=== PATIENT | male | born 1950 | race Caucasian/White ===

== ENCOUNTER 2018-11-27 15:17 | Emergency (ER) | payer MEDICARE, BC, SELFPAY ==
[2018-11-27 15:21] VITALS: BP 175/96; PULSE 68; RESP 16; TEMP 36.5; O2SAT 99
--- NOTE | 2018-11-27 15:46 | ED.GENADUL_ITS ---
Discharge Plan Disposition Patient Disposition: HOME Condition: Improving Discharge Details Chief Complaint: RespSymp Clinical Impression: Viral syndrome, Laryngitis, Pharyngitis Primary Care Provider: Yesika Fall ED Provider: Aranza Patel Home Meds and New Rx's Prescriptions: Continued minocycline 100 MG capsule 100 mg PO .Q THU & THURSDAY PRNRF: 0 aspirin [Aspir-81] 81 MG tablet,delayed release (DR/EC) 81 mg PO DAILY RF: 0 Prilosec OTC 20 MG tablet,delayed release (DR/EC) 20 mg PO .Q PRNRF: 0 Atorvastatin Calcium 20 MG tablet 20 mg PO DAILY Qty: 90 RF: 3 OneTouch Ultra Test 1 EACH strip 1 ea Miscellaneous DAILY Qty: 100 RF: 4 lancets [OneTouch UltraSoft Lancets] 1 EACH misc 1 ea Miscellaneous DAILY Qty: 100 RF: 3 metformin 1,000 MG tablet 1,000 mg PO BID Qty: 180 RF: 3 losartan 100 MG tablet 100 mg PO DAILY Qty: 90 RF: 3 glipizide 5 MG tablet 2.5 mg PO DAILY Qty: 45 RF: 4 Metoprolol Succinate 25 MG TAB.ER.24H 25 mg PO DAILY Qty: 90 RF: 3 cyanocobalamin (vitamin B-12) [Vitamin B-12] 500 MCG tablet 500 mcg PO DAILY RF: 0 gabapentin 300 MG capsule 300 mg PO TID Qty: 270 RF: 1 Discharge Instructions Instructions: Pharyngitis (ED), Laryngitis (ED), Viral Syndrome (ED) Additional Instructions: Drink plenty of fluids and get plenty of rest. Alternate Tylenol and Motrin as needed and directed for pain. Rest your voice as much as possible. You can try drinking hot water with lemon, Chloraseptic throat spray, Sucrets, or cough drops. Follow-up with your primary care doctor in 1 week for reevaluation. Return immediately to the emergency department any worsening or new concerning symptoms. Discharge Data Discharge Date/Time-TO BE ENTERED AT DEPARTURE: 11/27/18 17:51 Discharge Physician: Aranza Patel Medical Decision Making 68-year-old male with history of diabetes, hyper lipidemia, hypertension, hypothyroidism who presents with sore throat, painful swallowing, bilateral ear pain, occasional dry cough, headache and body aches for the past 5 days. States the sore throat is bothering him the most. He has been able to eat and drink normally but with pain. Denies any known fever. Blood pressure hypertensive otherwise vitals within normal limits. Afebrile. Voice is hoarse. TMs dull bilaterally. Patient has uvular edema but no exudates or tonsillar abscess and uvula is midline. Lungs clear to auscultation. No lymphadenopathy. Differential diagnosis includes strep pharyngitis, viral pharyngitis, laryngitis, URI, influenza. Will obtain a rapid strep and influenza test. Will give a dose of Decadron p.o. discussed with patient that as he has normal heart rate, respirations, oxygen saturation, without fever, no complaints of chest pain or shortness of breath with normal lung sounds, I do not see an indication for chest x-ray and he is agreeable. 1700 --rapid strep and influenza negative. Patient states he feels better. Patient instructed on the importance of rest, fluids, voice rest, alternating Tylenol and Motrin. Instructed to call his primary care doctor on Thursday to schedule follow-up appointment and to return here at any time if significantly worse. Medical Records Medical records reviewed: Yes I reviewed the patient's medical records. Lab Data Lab results reviewed: Yes I reviewed the patient's lab results. Rapid strep negative. Rapid influenza negative. HPI General Mode of arrival: ambulatory . Date/Time Provider Initiated Documentation: 11/27/18 15:26 . Limitations to Documentation: no limitations . Information obtained by: patient . HPI Narrative: Pt is a 68yo M who presents to the ED w/ a c/o sore throat, occasional dry cough, bilateral ear pain and decreased hearing, headache and body aches for the past 5 days. Patient states the sore throat was bothering him the most. He states he has been able to eat and drink normally but it hurts with swallowing. He denies any known fever. He also admits to diarrhea one time today but denies any vomiting. Patient states he has been taking Advil occasionally for pain and Tessalon Perles for his cough. Patient states his was sick recently with a GI bleed and was in the hospital and he was traveling between [facility] and [facility]. He denies any known flu contacts. He states he did receive a flu shot this year. Related Data Home Medications Medication Instructions Recorded Confirmed aspirin [Aspir-81] 81 mg PO DAILY tab-cap 02/24/13 11/27/18 minocycline 100 mg PO .Q MON & THURSDAY PRN 02/24/13 11/27/18 Prilosec OTC 20 mg PO .Q PRN 02/16/14 11/27/18 OneTouch Ultra Test #100 strip 12/29/17 11/27/18 glipizide 2.5 mg PO DAILY #45 tab-cap 12/29/17 11/27/18 lancets [OneTouch UltraSoft #100 strip 12/29/17 11/27/18 Lancets] losartan 100 mg PO DAILY #90 tab-cap 12/29/17 11/27/18 metformin 1,000 mg PO BID #180 tab 12/29/17 11/27/18 cyanocobalamin (vitamin B-12) 500 mcg PO DAILY tab 04/13/18 11/27/18 [Vitamin B-12] gabapentin 300 mg PO TID #270 tab-cap 06/29/18 11/27/18 Previous Rx's Medication Instructions Recorded OneTouch Ultra Test #100 strip 12/29/17 glipizide 2.5 mg PO DAILY #45 tab-cap 12/29/17 lancets [OneTouch UltraSoft #100 strip 12/29/17 Lancets] losartan 100 mg PO DAILY #90 tab-cap 12/29/17 metformin 1,000 mg PO BID #180 tab 12/29/17 gabapentin 300 mg PO TID #270 tab-cap 06/29/18 Allergies Allergy/AdvReac Type Severity Reaction Status Date / Time Penicillins Allergy tongue Verified 11/27/18 15:24 swelled hydrochlorothiazide AdvReac Mild hypomagnese Verified 11/27/18 15:24 eufemia codeine AdvReac upset Verified 11/27/18 15:24 stomach General Stated Complaint: RespSymp SD: 3 Review of Systems Review of Systems All systems reviewed & are unremarkable except as noted in HPI and below Constitutional Reports as per HPI, Denies chills and Denies fever(s) Eyes Denies blurry vision ENT Denies dizziness, Reports sore throat and Denies throat swelling Cardiovascular Denies chest pain and Denies dyspnea Respiratory Reports cough, Denies excessive phlegm production and Denies dyspnea Gastrointestinal Denies abdominal pain, Denies diarrhea and Denies vomiting Genitourinary Denies hematuria and Denies dysuria Musculoskeletal Denies back pain and Denies numbness Integumentary/Breasts Denies lesions and Denies rash Neurologic Denies dizziness and Denies numbness Allergic/Immunologic Denies throat swelling [facility] Medical History Acne rosacea B12 deficiency Cervical radiculopathy at C6 Diabetes Erectile dysfunction GERD (gastroesophageal reflux disease) Hyperlipidemia Hypertension Hypomagnesemia Hypothyroidism Osteoarthritis Sensorineural hearing loss (SNHL) of both ears Surgical History Colonoscopy - IV Sedation Colonoscopy - MAC (06/29/18) Family History Brother Alcohol abuse COPD (chronic obstructive pulmonary disease) Brother Alcohol abuse Neoplasm COPD (chronic obstructive pulmonary disease) Other Diabetes Heart disease Hyperlipidemia Social History household members: spouse housing: house lives independently: Yes number of children: 3 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 duration: 15-30 minutes/day Smoking/Tobacco Use Status: Never alcohol intake: current alcohol intake frequency: 0-2 drinks per day Alcohol type: other substance use type: does not use seatbelt use: always drive intox or ride w/ intox truck 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 heavy: No water heater temp set < 120 deg: Yes working smoke detector in home: Yes fire extinguisher in home: Yes carbon monox detector in home: Yes Exam Const General: cooperative and healthy appearing Orientation: alert and awake HENKS Head: normal to inspection Ears: hearing grossly normal bilaterally, external ears normal and TM abnormal dull bilaterally; not with effusion and not erythematous General nose exam: external nose normal Face and sinus: normal facial exam and sinuses nontender Mouth: oral mucosae normal Teeth and gingiva: dentition normal Throat: uvula midline and posterior oropharynx abnormal (Mild to moderate uvular edema. No tonsillar edema, exudates.) Eyes General: appearance normal, both eyes and all related structures Eyelids: eyelids normal EOM: EOM intact bilaterally Neck Neck: normal visual inspection Lymphatic: no lymphadenopathy noted Chest Chest: normal inspection of the chest Resp Effort & Inspection: normal respiratory effort and able to speak in complete sentences Auscultation: clear to auscultation bilaterally Cardio Rate: regular rate Rhythm: regular rhythm GI Inspection: normal to inspection Palpation: soft, not firm, no guarding, no hepatosplenomegaly, no masses and nontender Auscultation: normal bowel sounds Skin General skin exam: no rashes or lesions noted Neuro General: alert and awake Cognition: normal cognition Speech: speech normal Gait: normal gait Motor: muscle tone normal throughout Sensory Exam: no sensory deficits noted Extrem General: normal to inspection, full ROM and no edema Psych Appearance: grossly normal Mental Status: mental status grossly normal Speech and Movement: speech and movement normal Affect: normal affect Thought Process: normal Course Vital Signs Temperature 97.7 F 11/27/18 15:21 Pulse 68 11/27/18 15:21 Respiratory Rate 16 11/27/18 15:21 Blood Pressure 175/96 H 11/27/18 15:21 Pulse Oximetry 99 11/27/18 15:21 Temperature 97.7 F 11/27/18 15:21 Temperature Source Oral 11/27/18 15:21 Pulse 68 11/27/18 15:21 Respiratory Rate 16 11/27/18 15:21 Respiratory Effort 11/27/18 15:37 Respiratory Depth Normal 11/27/18 15:37 Blood Pressure 175/96 H 11/27/18 15:21 Blood Pressure Position Sitting 11/27/18 15:21 Pulse Oximetry 99 11/27/18 15:21 Oxygen Delivery Method Room Air 11/27/18 15:21 Oxygen Flow Rate 0 11/27/18 15:21 Pain Level 0 11/27/18 15:21
[2018-11-27] MEDS: Dexamethasone 10 MG/ML VIAL PO (16:34)
--- NOTE | 2018-11-27 17:14 | NUR.NOTE ---
Remains alert, skin warm/dry/pink. No WOB. Drinking G-jere. Reports he feels a wee-bit better.Nursing Note:
[2018-11-27 17:45] VITALS: BP 150/72; PULSE 70; RESP 16; TEMP 36.6; O2SAT 99
[2018-11-27 18:27] VITALS: BP 150/72; PULSE 70; RESP 16; TEMP 36.6; O2SAT 99
== END 2018-11-27 17:51 | disposition home or self-care (01) ==
PROVIDERS: Emergency Provider Physician Assistant; PCP Internal Medicine
DX: J02.8 Acute pharyngitis due to other specified organisms (principal); J04.0 Acute laryngitis; H92.03 Otalgia, bilateral; R05 Cough; B34.9 Viral infection, unspecified; E11.9 Type 2 diabetes mellitus without complications; Z79.84 Long term (current) use of oral hypoglycemic drugs; I10 Essential (primary) hypertension
CPT/HCPCS: 87449; 87880; 99283; 87081; J1100

== ENCOUNTER 2019-01-17 06:50 | Outpatient (CLI) | payer MEDICARE, BC, SELFPAY ==
[2019-01-17 09:01] LABS: Anion Gap 8.3 mmol/L (3-11); BUN 16 mg/dL (7-18); CO2 28.7 mmol/L (21.0-32.0); Calcium 9.9 mg/dL (8.5-10.1); Chloride 103 mmol/L (98-107); Cholesterol 192 mg/dL (50-200); Glucose 158 mg/dL (70-100); HDL Cholesterol 63 mg/dL (40-60); LDL CHOLESTEROL 102 mg/dL (<100); Potassium 5.6 mmol/L (3.5-5.1); Sodium 140 mmol/L (136-145); Triglyceride 123 mg/dL (30-150); Vitamin B12 355 pg/mL (193-986)
[2019-01-18 09:30] LABS: PSA, Screening 0.3 ng/ml (0-4.5)
== END 2019-01-17 07:10 ==
PROVIDERS: PCP Internal Medicine; Visit Provider Internal Medicine
DX: E11.9 Type 2 diabetes mellitus without complications (principal); I10 Essential (primary) hypertension; D51.8 Other vitamin B12 deficiency anemias; Z12.5 Encounter for screening for malignant neoplasm of prostate
CPT/HCPCS: 36415; 80048; 80061; 83721; 84153; 82607

== ENCOUNTER 2019-02-11 09:56 | Outpatient (CLI) | payer MEDICARE, BC, SELFPAY ==
[2019-02-11 11:08] LABS: Potassium 4.8 mmol/L (3.5-5.1)
== END 2019-02-11 10:16 ==
PROVIDERS: PCP Internal Medicine; Visit Provider Internal Medicine
DX: E87.5 Hyperkalemia (principal)
CPT/HCPCS: 36415; 84132

== ENCOUNTER 2019-05-10 07:12 | Outpatient (CLI) | payer MEDICARE, BC, SELFPAY ==
[2019-05-10 08:08] LABS: Anion Gap 13.7 mmol/L (3-11); BUN 14 mg/dL (7-18); CO2 23.3 mmol/L (21.0-32.0); CREATININE 1.13 mg/dL (0.70-1.30); Calculated LDL 76 mg/dL; Chloride 105 mmol/L (98-107); Cholesterol 149 mg/dL (50-200); Glucose 170 mg/dL (70-100); HDL Cholesterol 57 mg/dL (40-60); Potassium 4.8 mmol/L (3.5-5.1); Sodium 142 mmol/L (136-145); Triglyceride 81 mg/dL (30-150)
== END 2019-05-10 07:32 ==
PROVIDERS: PCP Internal Medicine; Visit Provider Internal Medicine
DX: E78.5 Hyperlipidemia, unspecified (principal); I10 Essential (primary) hypertension
CPT/HCPCS: 36415; 80048; 80061; 83721

== ENCOUNTER 2019-06-27 10:36 | Emergency (ER) | payer MEDICARE, BC, SELFPAY ==
[2019-06-27 10:42] VITALS: BP 117/65; PULSE 84; RESP 14; TEMP 36.8; O2SAT 100
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
--- NOTE | 2019-06-27 11:06 | DI.RAD_ITS ---
SYMPTOM/DIAGNOSIS: SWELLING, PAIN LEFT KNEE: 06/27 Three views were obtained. Minimal degenerative changes noted. No evidence of fracture.
[2019-06-27] MEDS: Ibuprofen 600 MG TAB PO (11:34)
== END 2019-06-27 12:21 | disposition home or self-care (01) ==
PROVIDERS: Emergency Provider Student in an Organized Health Care Education/Training Program; PCP Internal Medicine
DX: M25.462 Effusion, left knee (principal); E11.9 Type 2 diabetes mellitus without complications; I10 Essential (primary) hypertension; Z79.84 Long term (current) use of oral hypoglycemic drugs
CPT/HCPCS: 29505; 73562; 99283; 99282; L1820

== ENCOUNTER → 2019-08-15 08:52 | Outpatient (BNVA) | payer MEDICARE, BC, SELFPAY | PROVIDERS: PCP Internal Medicine; Referring Provider Internal Medicine; Visit Provider Student in an Organized Health Care Education/Training Program | DX: M25.462 Effusion, left knee (principal) | CPT/HCPCS: 20610; 99203; 99214; J1040 ==

== ENCOUNTER → 2019-10-17 08:10 | Outpatient (BNVA) | payer MEDICARE, BC, SELFPAY | PROVIDERS: PCP Internal Medicine; Referring Provider Internal Medicine; Visit Provider Student in an Organized Health Care Education/Training Program | DX: M25.462 Effusion, left knee (principal); Z98.890 Other specified postprocedural states | CPT/HCPCS: 99213 ==

== ENCOUNTER 2019-11-23 11:57 | Outpatient (REF) | payer MEDICARE, BC, SELFPAY ==
[2019-11-23 13:36] LABS: COMMENT (LAB VIEW ONLY) 71.09 mg/dL; Microalb ug/mg Crea 3.2 ug/mg Cr
== END 2019-11-23 12:17 ==
LOC: LBN 11:57
PROVIDERS: PCP Internal Medicine; Visit Provider Internal Medicine
DX: E11.9 Type 2 diabetes mellitus without complications (principal)
CPT/HCPCS: 82043; 82570

== ENCOUNTER 2020-04-23 12:12 | Emergency (ER) | payer MEDICARE, BC, SELFPAY ==
[2020-04-23] VITALS (31 sets, daily range): BP systolic 131–159; BP diastolic 59–104; PULSE 64–85; RESP 14–23; TEMP 36.7; O2SAT 94–100
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
[2020-04-23] MEDS: methylPREDNISolone SUCC 125 MG VIAL IVP (12:31)
[2020-04-23] MEDS: diphenhydrAMINE 50 MG/ML VIAL IVP (12:32)
[2020-04-23] MEDS: Normal Saline 500 ML IV (12:44)
[2020-04-23] MEDS: FAMOTIDINE 20 MG/50 ML BAG 200 MG IVPB (12:44)
== END 2020-04-23 15:51 | disposition home or self-care (01) ==
PROVIDERS: Emergency Provider Student in an Organized Health Care Education/Training Program; PCP Internal Medicine
DX: T63.441A Toxic effect of venom of bees, accidental (unintentional), initial encounter (principal); R20.2 Paresthesia of skin; I10 Essential (primary) hypertension; E11.9 Type 2 diabetes mellitus without complications; Z79.84 Long term (current) use of oral hypoglycemic drugs
CPT/HCPCS: 36415; 36416; 82962; 96361; 96374; 96375; 99284; J1200; J2930

== ENCOUNTER 2020-05-16 03:06 | Outpatient (CLI) | payer MEDICARE, BC, SELFPAY ==
[2020-05-16 11:39] LABS: TSH (W/Ref FT4) 4.28 uIU/mL (0.36-3.74)
[2020-05-16 12:06] LABS: FREE T4 0.94 ng/dL (0.76-1.46)
== END 2020-05-16 03:26 ==
PROVIDERS: PCP Internal Medicine; Visit Provider Internal Medicine
DX: R53.83 Other fatigue (principal)
CPT/HCPCS: 36415; 84439; 84443

== ENCOUNTER 2020-07-18 18:53 | Observation (INO) | payer MEDICARE, BC, SELFPAY ==
[2020-07-18 18:58] VITALS: BP 137/61; PULSE 79; RESP 18; TEMP 36.2; O2SAT 100
--- NOTE | 2020-07-18 19:00 | RT.EKG_ITS ---
APPROVED REPORT Exam: Resting ECG Patient Location: E HR:77 bpm ECG Measurements Heart Rate 77 AXIS FL 263 P 19 QRSd 81 QRS 43 QT 422 T 20 QTc 478 Conclusion Sinus rhythm...normal P axis, V-rate 60- 99 Prolonged FL interval...FL >[address]
[2020-07-18 19:01] VITALS: RESP 19
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
[2020-07-18] MEDS: Normal Saline 1,000 ML 1000 ML IV ×2 (19:40→21:09)
[2020-07-18] MEDS: Ondansetron 4 MG/2 ML VIAL IVP (19:40)
[2020-07-18] MEDS: diazePAM 10 MG/2 ML SYR 2 MG IVP (19:40)
[2020-07-18 19:46] LABS: Abs Immature Grans 0.06 10^3/uL (0.0-0.06); Absolute Basophil Count 0.05 10^3/uL (0.0-0.2); Absolute Eosinophil Count 0.16 10^3/uL (0.0-0.7); Absolute Lymphocyte Count 1.98 10^3/uL (1.2-3.4); Absolute Monocyte Count 1.35 10^3/uL (0.1-0.8); Basophils % 0.4; Eosinophils % 1.3; HCT 32.4 % (40.0-50.0); HGB 9.9 g/dL (13.5-17.5); Immature Grans % 0.5; Lymphocytes % 16.6; MCH 25.3 pg (27.0-33.0); MCHC 30.6 % (32.0-36.0); MCV 82.9 fL (80-95); MPV 10.2 fL (8.0-11.0); Monocytes % 11.3; Neutrophils % 69.9; Nucleated RBC 0 %; Platelet Count 322 10^3/uL (130-400); RBC 3.91 10^6/uL (4.36-5.78); RDW 16.4 % (11.8-14.1); RDW-SD 49.2 fL; WBC 11.94 10^3/uL (4.4-10.8)
--- NOTE | 2020-07-18 19:51 | NUR.NOTE ---
Addendum entered by Johana Valdez 07/18/20 19:51: Sats to 98% Original Note: Sats to 85% after valium. MD Burch aware, pt placed on 2L O2.
[2020-07-18 19:57] LABS: Absolute Neutrophil Count 8.35 10^3/uL (1.2-6.7)
[2020-07-18 20:07] LABS: ALT 22 U/L (16-63); AST 19 U/L (15-37); Albumin 3.7 g/dL (3.4-5.0); Alkaline Phosphatase 64 U/L (46-116); Anion Gap 21.1 mmol/L (3-11); BUN 14 mg/dL (7-18); Bilirubin, Total 0.5 mg/dL (0.2-1.0); CO2 14.9 mmol/L (21.0-32.0); CREATININE 1.08 mg/dL (0.70-1.30); Chloride 103 mmol/L (98-107); Glucose 93 mg/dL (74-106); Magnesium 1.7 mg/dL (1.8-2.4); Potassium 3.2 mmol/L (3.5-5.1); Sodium 139 mmol/L (136-145); Total Protein 6.5 g/dL (6.4-8.2)
--- NOTE | 2020-07-18 20:32 | DI.CT_ITS ---
EXAM: CT BRAIN NECK CTA CLINICAL HISTORY: severe vertigo, wait for labs. TECHNIQUE: Imaging Protocol: Axial CT angiography was performed with multi-slice acquisition and mu lti-planar and/or 3D reconstructions. CONTRAST MATERIAL: Intravenous: Omnipaque 350 Contrast volume:85 cc COMPARISON: MR MRI - CERVICAL SPINE WO CONT from 06/02/2016 FINDINGS: CT Head W/O: Ventricles and Extra axial spaces: Normal in size and morphology for the patient's age. Hemorrhage: None. Cerebral parenchyma: Small old left cerebellar infarct, otherwise normal. Midline shift: None. Brainstem/Cerebellum: Normal. Calvarium: Normal. Visualized Paranasal sinuses/Mastoids: Clear Soft Tissues: Unremarkable. CTA Brain W: Internal Carotid Arteries: Petrous: Normal. Cavernous: Normal. Cerebral: Normal. Middle Cerebral Arteries: Right: No aneurysm, occlusion or significant stenosis. Left: No aneurysm, occlusion or significant stenosis. Anterior Cerebral Arteries: Right: No aneurysm, occlusion or significant stenosis. Left: No aneurysm, occlusion or significant stenosis. Posterior cerebral Arteries: Right: No aneurysm, occlusion or significant stenosis. Left: No aneurysm, occlusion or significant stenosis. Vertebral Arteries: Right: No aneurysm, occlusion or significant stenosis. Left: No aneurysm, occlusion or significant stenosis. Basilar Artery: No aneurysm, occlusion or significant stenosis. CTA Neck W: Common Carotid: Right: No aneurysm, occlusion or significant stenosis. Left: No aneurysm, occlusion or significant stenosis. External Carotid: Right: No aneurysm, occlusion or significant stenosis. Left: No aneurysm, occlusion or significant stenosis. Internal Carotid: Right: No aneurysm, occlusion or significant stenosis. Left: No aneurysm, occlusion or significant stenosis. Vertebral Artery: Right: No aneurysm, occlusion or significant stenosis. Left: No aneurysm, occlusion or significant stenosis. Lung Apices: Normal. Bones: Normal. Soft Tissues: Normal. IMPRESSION: 1. Normal CTA examination of the [place]. 2. Small old left cerebellar infarct, otherwise unremarkable noncontrast CT Head. 3. Normal CTA examination of the neck. RADIATION DOSE DELIVERED: Total DLP DATA REPOSITORY: All CT scans at this facility are submitted to the National Radiology Data Registry (NRDR) Dose Index Registry (DIR) with the [employer] (ACR). RADIATION OPTIMIZATION: All CT scans at this facility use at least one of these dose optimization te chniques: automated exposure control; mA and/or kV adjustment per patient size (includes targeted exa ms where dose is matched to clinical indication); or iterative reconstruction.
[2020-07-18] MEDS: Normal Saline Flush 10 ML SYR IVP (20:43)
[2020-07-18] MEDS: Omnipaque 350 MG/ML 100 ML BTL IJ (20:43)
[2020-07-18] MEDS: Normal Saline - Diluent 50 ML VIAL IV (20:44)
[2020-07-18] MEDS: Meclizine 25 MG TAB PO (21:08)
[2020-07-18 21:09] VITALS: BP 128/61; PULSE 85; RESP 16; O2SAT 100
--- NOTE | 2020-07-18 21:09 | DI.VRAD_ITS ---
PROCEDURE INFORMATION: Exam: CT Angiography Head Without And With Contrast Exam date and time: 07/18/2020 7:34 PM Age: 70 years old Clinical indication: Vertigo TECHNIQUE: Imaging protocol: Computed tomographic angiography of the head without and with intravenous contrast. 3D rendering (Not supervised by radiologist): MIP and/or 3D reconstructed images were created by the technologist. Radiation optimization: All CT scans at this facility use at least one of these dose optimization techniques: automated exposure control; mA and/or kV adjustment per patient size (includes targeted exams where dose is matched to clinical indication); or iterative reconstruction. Contrast material: [id number]; Contrast volume: 85 ml; Contrast route: INTRAVENOUS (IV); COMPARISON: No relevant prior studies available. FINDINGS: ANTERIOR CIRCULATION: Right internal carotid artery: Intracranial segment is patent with no significant stenosis or occlusion. No aneurysm. Right middle cerebral artery: No occlusion or significant stenosis. No aneurysm. Right anterior cerebral artery: No occlusion or significant stenosis. No aneurysm. Left internal carotid artery: Intracranial segment is patent with no significant stenosis. No aneurysm. Left middle cerebral artery: No occlusion or significant stenosis. No aneurysm. Left anterior cerebral artery: No occlusion or significant stenosis. No aneurysm. POSTERIOR CIRCULATION: Right vertebral artery: No occlusion or significant stenosis. No aneurysm. Left vertebral artery: No occlusion or significant stenosis. No aneurysm. Basilar artery: No occlusion or significant stenosis. No aneurysm. Right posterior cerebral artery: No occlusion or significant stenosis. No aneurysm. Left posterior cerebral artery: No occlusion or significant stenosis. No aneurysm. HEAD: Brain: A small remote infarct is seen within the left cerebellum, on axial image 13, series 4. The brain parenchyma is otherwise normal appearance. No evidence for acute cortical infarct. No intracranial hemorrhage. No midline shift. Cerebral ventricles: No hydrocephalus. Bones/joints: Unremarkable. No acute fracture. Paranasal sinuses: Minimal mucosal thickening within the bilateral ethmoid sinuses. The remaining paranasal sinuses are well aerated. No air-fluid levels. Mastoid air cells: Visualized mastoids are normal. No mastoid effusion. Soft tissues: The overlying soft tissues are normal appearance. IMPRESSION: 1. No large vessel occlusion within the intracranial vessels. 2. Remote left cerebellar infarct. No evidence for acute infarct. No evidence for acute intracranial process. PROCEDURE INFORMATION: Exam: CT Angiography Neck Without And With Contrast Exam date and time: 07/18/2020 7:34 PM Age: 70 years old Clinical indication: Vertigo TECHNIQUE: Imaging protocol: Computed tomographic angiography of the neck without and with intravenous contrast. 3D rendering (Not supervised by radiologist): MIP and/or 3D reconstructed images were created by the technologist. Radiation optimization: All CT scans at this facility use at least one of these dose optimization techniques: automated exposure control; mA and/or kV adjustment per patient size (includes targeted exams where dose is matched to clinical indication); or iterative reconstruction. Contrast material: [id number]; Contrast volume: 85 ml; Contrast route: INTRAVENOUS (IV); COMPARISON: No relevant prior studies available. FINDINGS: Right common carotid artery: No stenosis. No dissection or occlusion. Right internal carotid artery: No stenosis of the extracranial segment. No dissection or occlusion. Right external carotid artery: No occlusion or stenosis of the origin. Right vertebral artery: No stenosis. No dissection or occlusion. Left common carotid artery: No stenosis. No dissection or occlusion. Left internal carotid artery: No stenosis of the extracranial segment. No dissection or occlusion. Left external carotid artery: No occlusion or stenosis of the origin. Left vertebral artery: No stenosis. No dissection or occlusion. Bones/joints: No acute fracture. Soft tissues: Normal. No significant soft tissue swelling. IMPRESSION: No stenosis or occlusion within the extracranial vessels. REFERENCES: NASCET CRITERIA. The degree of internal carotid artery stenosis is based on NASCET criteria. Normal is no stenosis. Mild is less than 50% stenosis. Moderate is 50-69% stenosis. Severe is 70% to 99% stenosis. Total occlusion is no detectable patent lumen. Dictated and Authenticated by: Erica Benjamin MD. Ordering:ZEESHAN Conteh MD
[2020-07-18 21:11] LABS: BE (Venous) -7 mmol/L (-2-3); HCO3 (Venous) 19 mmol/L (23-28); O2 Sat (Venous) 84 %; TCO2 (Venous) 18 mmol/L (24-29); pCO2 (Venous) 33 mmHg (41-51); pH (Venous) 7.36 (7.31-7.41); pO2 (Venous) 50 mmHg
[2020-07-18 21:11] LABS: Salicylate < 2.8 mg/dL (2.8-20.0)
[2020-07-18] MEDS: POTASSIUM CHLORIDE 20 MEQ/100 ML BAG 50 MEQ IVPB (21:13)
[2020-07-18] MEDS: MAGNESIUM SULFATE 1 GM/100 ML BAG IVPB (21:13)
--- NOTE | 2020-07-18 21:14 | NUR.NOTE ---
Pt reports dizziness improved to 6/10. Continued nausea. Med with meclizine a/o. reports dizziness worsened when sitting up. joe po's.
[2020-07-18 21:15] LABS: Lactate 2.8 mmol/L (0.6-1.4)
[2020-07-18 21:17] LABS: Acetaminophen < 2 ug/mL (10-30)
[2020-07-18 21:31] LABS: ETHANOL BLOOD < 3.0 mg/dL (<3)
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
[2020-07-18 22:40] LABS: Lactate 1.7 mmol/L (0.6-1.4)
[2020-07-18 22:41] VITALS: BP 132/61; PULSE 82; RESP 16; O2SAT 96
[2020-07-18 22:50] LABS: Anion Gap 12.7 mmol/L (3-11); CO2 19.3 mmol/L (21.0-32.0); Chloride 104 mmol/L (98-107); Potassium 5.1 mmol/L (3.5-5.1); Sodium 136 mmol/L (136-145)
--- NOTE | 2020-07-18 22:54 | NUR.NOTE ---
Pt maintaining sat 98% on room air. Report to med/surg.
[2020-07-18 23:28] VITALS: BP 122/67; PULSE 73; RESP 16; TEMP 36.6; O2SAT 100
[2020-07-18 23:51] VITALS: BP 122/64; PULSE 79
--- NOTE | 2020-07-19 | DI.MRI_ITS ---
EXAM: MR BRAIN WO/W CLINICAL HISTORY: vertigo. TECHNIQUE: Multiplanar multisequence MRI of the brain was performed. CONTRAST MATERIAL: IV Contrast: 15 millimeters Dotarem COMPARISON: CT CT BRAIN NECK CTA from 07/18/2020 FINDINGS: VENTRICLES AND EXTRA AXIAL SPACES: Normal in size and morphology for the patient's age. HEMORRHAGE: None. CEREBRAL PARENCHYMA: No focus of restricted diffusion to suggest acute infarct. No space-occupying le jeanne identified. There are a few scattered tiny high signal foci in the white matter consistent with minimal small vessel disease. MIDLINE SHIFT: None. BRAINSTEM/CEREBELLUM: Normal. ENHANCEMENT: No suspicious enhancement identified. VISUALIZED PARANASAL SINUSES/MASTOIDS: Clear. OTHER FINDINGS: Orbits and pituitary are unremarkable. Vascular flow voids appear intact. IMPRESSION: Unremarkable MRI of the brain. DATA REPOSITORY:
[2020-07-19] MEDS: Normal Saline 1,000 ML 125 ML IV ×2 (01:19→08:27)
[2020-07-19] MEDS: Normal Saline Flush 10 ML SYR IVP ×2 (01:20→12:42)
[2020-07-19] MEDS: Gabapentin 300 MG CAP PO ×4 (01:20→20:47)
[2020-07-19 07:19] LABS: Anion Gap 12.4 mmol/L (3-11); BUN 13 mg/dL (7-18); CO2 19.6 mmol/L (21.0-32.0); CREATININE 0.92 mg/dL (0.70-1.30); Calcium 8.1 mg/dL (8.5-10.1); Chloride 107 mmol/L (98-107); Glucose 66 mg/dL (74-106); Potassium 4.3 mmol/L (3.5-5.1); Sodium 139 mmol/L (136-145)
[2020-07-19 08:20] VITALS: BP 125/72; BP 148/82; PULSE 72; PULSE 86; RESP 18; TEMP 36.9; O2SAT 97
[2020-07-19] MEDS: Aspirin 325 MG TAB PO (08:23)
[2020-07-19] MEDS: Atorvastatin 40 MG TAB PO (08:25)
[2020-07-19] MEDS: Losartan 50 MG TAB 100 MG PO (08:25)
[2020-07-19] MEDS: Metoprolol CR 25 MG TABCR PO (08:25)
--- NOTE | 2020-07-19 09:30 | INITIAL_ITS ---
- If Service Date Differs Date of service: 07/19/20 Time of Service: 09:30 Care Management Initial Assess REASON FOR HOSPITALIZATION:: Vertigo PAST MEDICAL HISTORY/PAST SURGICAL HISTORY:: Medical History . Acne rosacea. B12 deficiency. Cervical radiculopathy at C6. Diabetes. Erectile dysfunction. GERD (gastroesophageal reflux disease). Hyperlipidemia. Hypertension. Hypomagnesemia. Hypothyroidism. subacute. No meds. Osteoarthritis. Sensorineural hearing loss (SNHL) of both ears. Surgical History . Colonoscopy - IV Sedation (~2007). 2007-nl. Colonoscopy - MAC (06/29/18) PREVIOUS FUNCTIONAL STATUS/SOCIAL/FAMILY SUPPORTS:: Elton lives in [facility] with his , Vesta. They have three children. They recently traveled to [facility] with family. He is independent at baseline. CURRENT FUNCTIONAL STATUS:: Elton is currently under precautions for Covid 19, as he recently traveled from an area requiring quarantine. CM called and spoke to his , Vesta to provide an update. CM will continue to follow. ADVANCE DIRECTIVES:: on file, Vesta listed as agent. Has patient been provided with info about the portal/API?: Yes Did the patient sign up for the portal?: No CODE STATUS:: Full Code INSURANCE COVERAGE / FINANCIAL ISSUES:: MCR/ BCBS CURRENT HOME/COMMUNITY SERVICES/EQUIPMENT:: No current equipment or services in the community. PRIMARY CARE PHYSICIAN:: Yesika Fall POTENTIAL DISCHARGE NEEDS:: Evaluations for further needs, follow up appointments PATIENT/FAMILY EDUCATION NEEDS:: Review discharge instructions regarding activity levels and medications, discussion of self care needs including Ask me three. ANTICIPATED BARRIERS TO DISCHARGE:: None identified at this time. TRANSPORTATION:: Via private vehicle by family. PLAN:: Elton will have an MRI today. Anticipate Elton will return home when medically cleared. His will drive him home via private vehicle. He will follow up with his PCP and discharge plan of care. CM will continue to follow and support discharge planning considerations.
[2020-07-19 11:12] VITALS: BP 134/76; PULSE 68; RESP 18; TEMP 36.9; O2SAT 97
[2020-07-19 12:41] VITALS: PULSE 70
[2020-07-19] MEDS: Gadoterate meglumine 20 ML VIAL 15 ML IVP (12:42)
[2020-07-19 13:10] LABS: COVID-19 RT-PCR UVMMC Result Negative (Negative)
--- NOTE | 2020-07-19 15:32 | NT_ITS ---
Date of service: 07/19/20 Time of Service: 15:52 PT Notes Visit Reasons: Vertigo Referral for safety assessment was received this afternoon at 15:[address] Del Rio was made regarding PUI status and pending COVID-[address] Del Rio verified that patient's brain MRI returned negative for any acute intracranial abnormality and clarified no new CVA for patient. He also indicated that the [place]-hallpike maneuver was performed at the ED initially with negative results. He advised PT that he will withdraw order for skilled services as he wanted to see how another dose of Valium will impact patient's mobility status with plan to have nursing staff attempt to walk patient in his room. Will do PT evaluation should another referral becomes warranted. Thank you for the opportunity to participate in the care of this patient. Pamela Khalil PT, DPT, CLT [facility] [place], [place]
--- NOTE | 2020-07-19 15:34 | W.PM.PROGNOT ---
Date of Service Date of service: 07/19/20 Time of Service: 15:34 Assessment and Plan Assessment and plan (1) Vertigo: Status: Acute Assessment and plan: Appears to be peripheral; labrynthitis vs positional. MRI head w/o acute findings/infarct Improving Meclizine prn Valium 2mg po tonight. PT eval. (2) Hypomagnesemia: Status: Acute Assessment and plan: Oral replacement Monitor (3) Essential hypertension: Status: Acute Assessment and plan: Cont Losartan and Metoprolol Monitor Subjective Subjective Patient reports: no new complaints and feels better Interval history since last seen: Still has mild vertigo with head movements Mild nausea but much improved. No KING. Exam Const General: cooperative and no acute distress Nutritional Appearance: average body habitus Eyes Conjunctivae: conjunctivae normal Sclera: sclerae normal Pupils: PERRL EOM: nystagmus (2-3 fine beats with left gaze) Resp Effort & Inspection: normal respiratory effort Auscultation: clear to auscultation bilaterally Cardio Rate: regular rate Rhythm: regular rhythm Neuro General: patient alert, patient oriented x3 and moves all extremities Cranial Nerves: nystagmus (2-3 fine beats with left gaze) Cognition: normal cognition Speech: speech normal Extrem General: no clubbing, cyanosis or edema Objective Objective Clinical Data: Abnormal lab results 07/18/20 07/18/20 07/18/20 Range/Units 19:05 19:05 21:05 WBC 11.94 H (4.4-10.8) 10^3/uL RBC 3.91 L (4.36-5.78) 10^6/uL Hgb 9.9 L (13.5-17.5) g/dL Hct 32.4 L (40.0-50.0) % MCH 25.3 L (27.0-33.0) pg MCHC 30.6 L (32.0-36.0) % RDW 16.4 H (11.8-14.1) % Absolute Neutrophils 8.35 H (1.2-6.7) 10^3/uL Absolute Monocytes 1.35 H (0.1-0.8) 10^3/uL VBG pCO2 33 L (41-51) mmHg VBG HCO3 19 L (23-28) mmol/L VBG Total CO2 18 L (24-29) mmol/L VBG Base Excess -7 L (-2-3) mmol/L VBG Lactate (0.6-1.4) mmol/L Potassium 3.2 L (3.5-5.1) mmol/L Carbon Dioxide 14.9 L (21.0-32.0) mmol/L Anion Gap 21.1 H (3-11) mmol/L Glucose (74-106) mg/dL Calcium (8.5-10.1) mg/dL Magnesium 1.7 L (1.8-2.4) mg/dL 07/18/20 07/18/20 07/18/20 Range/Units 21:05 22:35 22:35 WBC (4.4-10.8) 10^3/uL RBC (4.36-5.78) 10^6/uL Hgb (13.5-17.5) g/dL Hct (40.0-50.0) % MCH (27.0-33.0) pg MCHC (32.0-36.0) % RDW (11.8-14.1) % Absolute Neutrophils (1.2-6.7) 10^3/uL Absolute Monocytes (0.1-0.8) 10^3/uL VBG pCO2 (41-51) mmHg VBG HCO3 (23-28) mmol/L VBG Total CO2 (24-29) mmol/L VBG Base Excess (-2-3) mmol/L VBG Lactate 2.8 H* 1.7 H (0.6-1.4) mmol/L Potassium (3.5-5.1) mmol/L Carbon Dioxide 19.3 L (21.0-32.0) mmol/L Anion Gap 12.7 H (3-11) mmol/L Glucose (74-106) mg/dL Calcium (8.5-10.1) mg/dL Magnesium (1.8-2.4) mg/dL 07/19/20 Range/Units 05:35 WBC (4.4-10.8) 10^3/uL RBC (4.36-5.78) 10^6/uL Hgb (13.5-17.5) g/dL Hct (40.0-50.0) % MCH (27.0-33.0) pg MCHC (32.0-36.0) % RDW (11.8-14.1) % Absolute Neutrophils (1.2-6.7) 10^3/uL Absolute Monocytes (0.1-0.8) 10^3/uL VBG pCO2 (41-51) mmHg VBG HCO3 (23-28) mmol/L VBG Total CO2 (24-29) mmol/L VBG Base Excess (-2-3) mmol/L VBG Lactate (0.6-1.4) mmol/L Potassium (3.5-5.1) mmol/L Carbon Dioxide 19.6 L (21.0-32.0) mmol/L Anion Gap 12.4 H (3-11) mmol/L Glucose 66 L (74-106) mg/dL Calcium 8.1 L (8.5-10.1) mg/dL Magnesium (1.8-2.4) mg/dL Vital Signs Temperature 36.9 C 07/19/20 11:12 Temperature Source Tympanic 07/19/20 11:12 Pulse 70 07/19/20 12:41 Pulse Rhythm Regular 07/19/20 08:20 Respiratory Rate 18 07/19/20 11:12 Respiratory Effort 07/19/20 08:20 Respiratory Depth Normal 07/19/20 08:20 Respiratory Pattern Normal 07/19/20 08:20 Blood Pressure 134/76 07/19/20 11:12 Blood Pressure Position Supine 07/18/20 18:58 Pulse Oximetry 97 07/19/20 11:12 Oxygen Delivery Method Room Air 07/19/20 11:12 Oxygen Flow Rate 0 07/19/20 11:12 Pain Level 0 07/19/20 08:20 Intake & Output 07/18/20 07/19/20 07/19/20 23:59 11:59 23:59 Intake Total 1099 / 1099 891.667 / 891.667 Output Total 1050 / 1050 Balance 1099 / 1099 -158.333 / -158.333 Weight 76.3 kg Intake: IV 1100 / 1100 891.667 / 891.667 Output: Urine 1050 / 1050 Other: Urine Color Yellow Urine Appearance Clear Clear Urine Odor None Voiding Methods Urinal Laboratory Results WBC 11.94 10^3/uL (4.4-10.8) H 07/18/20 19:05 RBC 3.91 10^6/uL (4.36-5.78) L 07/18/20 19:05 Hgb 9.9 g/dL (13.5-17.5) L 07/18/20 19:05 Hct 32.4 % (40.0-50.0) L 07/18/20 19:05 MCV 82.9 fL (80-95) 07/18/20 19:05 MCH 25.3 pg (27.0-33.0) L 07/18/20 19:05 MCHC 30.6 % (32.0-36.0) L 07/18/20 19:05 RDW 16.4 % (11.8-14.1) H 07/18/20 19:05 Plt Count 322 10^3/uL (130-400) 07/18/20 19:05 MPV 10.2 fL (8.0-11.0) 07/18/20 19:05 Immature Gran % 0.5 07/18/20 19:05 Neutrophils % 69.9 07/18/20 19:05 Lymphocytes % 16.6 07/18/20 19:05 Monocytes % 11.3 07/18/20 19:05 Eosinophils % 1.3 07/18/20 19:05 Basophils % 0.4 07/18/20 19:05 Nucleated RBC % 0 % 07/18/20 19:05 Absolute Neutrophils 8.35 10^3/uL (1.2-6.7) H 07/18/20 19:05 Absolute Lymphocytes 1.98 10^3/uL (1.2-3.4) 07/18/20 19:05 Absolute Monocytes 1.35 10^3/uL (0.1-0.8) H 07/18/20 19:05 Absolute Eosinophils 0.16 10^3/uL (0.0-0.7) 07/18/20 19:05 Absolute Basophils 0.05 10^3/uL (0.0-0.2) 07/18/20 19:05 VBG pH 7.36 (7.31-7.41) 07/18/20 21:05 VBG pCO2 33 mmHg (41-51) L 07/18/20 21:05 VBG pO2 50 mmHg 07/18/20 21:05 VBG HCO3 19 mmol/L (23-28) L 07/18/20 21:05 VBG Total CO2 18 mmol/L (24-29) L 07/18/20 21:05 VBG O2 Saturation 84 % 07/18/20 21:05 VBG Base Excess -7 mmol/L (-2-3) L 07/18/20 21:05 VBG Lactate 1.7 mmol/L (0.6-1.4) H 07/18/20 22:35 Sodium 139 mmol/L (136-145) 07/19/20 05:35 Potassium 4.3 mmol/L (3.5-5.1) 07/19/20 05:35 Chloride 107 mmol/L (98-107) 07/19/20 05:35 Carbon Dioxide 19.6 mmol/L (21.0-32.0) L 07/19/20 05:35 Anion Gap 12.4 mmol/L (3-11) H 07/19/20 05:35 BUN 13 mg/dL (7-18) 07/19/20 05:35 Creatinine 0.92 mg/dL (0.70-1.30) 07/19/20 05:35 Estimated GFR/1.73 m2 >= 60.00 (mL/min/1.73m2) 07/19/20 05:35 Glucose 66 mg/dL (74-106) L 07/19/20 05:35 Calcium 8.1 mg/dL (8.5-10.1) L 07/19/20 05:35 Magnesium 1.7 mg/dL (1.8-2.4) L 07/18/20 19:05 Total Bilirubin 0.5 mg/dL (0.2-1.0) 07/18/20 19:05 AST 19 U/L (15-37) 07/18/20 19:05 ALT 22 U/L (16-63) 07/18/20 19:05 Alkaline Phosphatase 64 U/L (46-116) 07/18/20 19:05 Total Protein 6.5 g/dL (6.4-8.2) 07/18/20 19:05 Albumin 3.7 g/dL (3.4-5.0) 07/18/20 19:05 Salicylates < 2.8 mg/dL (2.8-20.0) 07/18/20 19:05 Acetaminophen < 2 ug/mL (10-30) 07/18/20 19:05 Ethyl Alcohol < 3.0 mg/dL (<3) 07/18/20 21:05 COVID-19 PCR Negative (Negative) 07/18/20 22:20 Nasopharyn COVID-19 PCR Not Applicable 07/18/20 22:20 Ref Test Perform Site [facility] 07/18/20 22:20
[2020-07-19 15:35] VITALS: BP 118/72; PULSE 68; RESP 18; TEMP 36.7; O2SAT 97
--- NOTE | 2020-07-19 16:06 | PHA.REVIEW ---
Pharmacy Admission Review - Admission Clinical Review (Last Reviewed 07/18/20 @ 22:06 by Raphael Vilchis MD) Vertigo (Acute) Hypomagnesemia (Acute 05/26/13) Essential hypertension (Acute 06/23/13) Penicillins Allergy (Verified 05/09/20 08:49) tongue swelled hydrochlorothiazide Adverse Reaction (Mild, Verified 05/09/20 08:49) hypomagnesemia losartan Adverse Reaction (Mild, Verified 05/09/20 08:49) Other (See Comment) codeine Adverse Reaction (Verified 05/09/20 08:49) upset stomach Bee stings Allergy (Unknown, Uncoded 05/09/20 08:49) Height 5 ft 10 in Weight 76.3 kg - Renal Dosing Renal Dosing: BUN 13 mg/dL (7-18) 07/19/20 05:35 Creatinine 0.92 mg/dL (0.70-1.30) 07/19/20 05:35 Medications needing adjustments: Reviewed - Anticoagulation Anticoagulation: Hgb 9.9 g/dL (13.5-17.5) L 07/18/20 19:05 Hct 32.4 % (40.0-50.0) L 07/18/20 19:05 Plt Count 322 10^3/uL (130-400) 07/18/20 19:05 Creatinine 0.92 mg/dL (0.70-1.30) 07/19/20 05:35 DVT Prohphylaxis: N/A Therapeutic Anticoagulation: Reviewed Medications: Aspirin - Opiate Usage Evaluate Pain Scale/Pains Meds: N/A - Relevant Labs Sodium 139 mmol/L (136-145) 07/19/20 05:35 Potassium 4.3 mmol/L (3.5-5.1) 07/19/20 05:35 Chloride 107 mmol/L (98-107) 07/19/20 05:35 Magnesium 1.7 mg/dL (1.8-2.4) L 07/18/20 19:05 Electrolytes, C-Reactive P, ESR: Reviewed - DM Control DM Control: Glucose 66 mg/dL (74-106) L 07/19/20 05:35 Insulin Dosing: N/A (oral meds on hold) - Heart Failure/IA EF%, ROS's, B-Blockers, Diuretics: Reviewed - BP Control BP Control: Blood Pressure [Standing] 148/82 Blood Pressure [Supine] 125/72 Blood Pressure 134/76 Blood Pressure 125/72 If elevated: Reviewed - Qtc Review If Elevated: Reviewed (QTc 478) - IV to PO Switch IV Medications: Reviewed - Home Meds Relevent Home Meds Not ordered & why?: oral diabetes meds (did have low BG level this am) - Current meds Current Medication Order Review: Reviewed
[2020-07-19] MEDS: Meclizine 25 MG TAB PO (16:11)
[2020-07-19] MEDS: Magnesium Oxide 400 MG TAB PO (20:47)
[2020-07-19 20:48] VITALS: BP 108/57; PULSE 75; RESP 16; TEMP 37.1; O2SAT 95
[2020-07-19] MEDS: diazePAM 2 MG TAB PO (21:51)
[2020-07-20 07:20] LABS: HCT 31.9 % (40.0-50.0); HGB 9.7 g/dL (13.5-17.5); MCH 25.3 pg (27.0-33.0); MCHC 30.4 % (32.0-36.0); MCV 83.1 fL (80-95); MPV 9.8 fL (8.0-11.0); Platelet Count 256 10^3/uL (130-400); RBC 3.84 10^6/uL (4.36-5.78); RDW 16.6 % (11.8-14.1); RDW-SD 50.3 fL; WBC 5.78 10^3/uL (4.4-10.8)
[2020-07-20 07:29] LABS: Anion Gap 8.3 mmol/L (3-11); BUN 15 mg/dL (7-18); CO2 22.7 mmol/L (21.0-32.0); CREATININE 1.02 mg/dL (0.70-1.30); Calcium 8.4 mg/dL (8.5-10.1); Chloride 107 mmol/L (98-107); Glucose 121 mg/dL (74-106); Potassium 4.2 mmol/L (3.5-5.1); Sodium 138 mmol/L (136-145)
[2020-07-20 08:20] VITALS: BP 138/78; PULSE 72; TEMP 36.7; O2SAT 97
[2020-07-20] MEDS: Atorvastatin 40 MG TAB PO (08:23)
[2020-07-20] MEDS: Gabapentin 300 MG CAP PO ×2 (08:23→14:35)
[2020-07-20] MEDS: Aspirin 325 MG TAB PO (08:23)
[2020-07-20] MEDS: Losartan 50 MG TAB 100 MG PO (08:25)
[2020-07-20] MEDS: Metoprolol CR 25 MG TABCR PO (08:27)
[2020-07-20] MEDS: Magnesium Oxide 400 MG TAB PO (10:24)
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
--- NOTE | 2020-07-20 11:33 | PDOC.CMDIS ---
- If Service Date Differs Date of service: 07/20/20 Time of Service: 11:33 LACE Index Scoring Tool - Questions: Length of Stay (in days): 3 Acuity (Admit via E.D.?): Yes Comorbidities: Diabetes w/o Complication E.D. Visits: 2 - Answers: Total Score: 9 Risk of Readmission: Low Risk Care Management Discharge Reason for Hospitalization: Vertigo Discharge Plan: Elton will return home today with no additional services. His will drive him home via private vehicle. He will follow up with his PCP and discharge plan of care. Patient/Family Education Needs: Review discharge instructions regarding activity levels and medications, discussion of self care needs including ask me three.
[2020-07-20] MEDS: Insulin Aspart 300 UNITS/3 ML PEN SC (12:05)
== END 2020-07-20 14:42 | disposition home or self-care (01) ==
LOC: ER 22:44 → MS 23:10
PROVIDERS: Emergency Medicine; Family Medicine; Admitting Provider General Practice; Emergency Provider Student in an Organized Health Care Education/Training Program; PCP Internal Medicine; Visit Provider General Practice
DX: R42 Dizziness and giddiness (principal); E11.9 Type 2 diabetes mellitus without complications; I10 Essential (primary) hypertension; R11.0 Nausea; K21.9 Gastro-esophageal reflux disease without esophagitis; E78.5 Hyperlipidemia, unspecified; E83.42 Hypomagnesemia; E03.9 Hypothyroidism, unspecified; M19.90 Unspecified osteoarthritis, unspecified site; H90.3 Sensorineural hearing loss, bilateral; M54.12 Radiculopathy, cervical region; Z86.73 Personal history of transient ischemic attack (TIA), and cerebral infarction without residual deficits
CPT/HCPCS: 70496; 70498; 70553; 80048; 80051; 80053; 82805; 85027; 93005; 96361; 96365; 96368; 96375; 99222; 99232; 99238; 99285; U0003; 80320; 80329; 83605; 83735; 85025; 93010; 99217; 99218; 99225; 99284; G0378; J2405; J3360; J3475; J3480; J3490

== ENCOUNTER 2020-07-27 07:57 | Outpatient (CLI) | payer MEDICARE, BC, SELFPAY ==
[2020-07-29 22:35] LABS: Patient Race White; SARS-CoV-2 RNA Undetected (Undetected); SARS-CoV-2 Specimen Source Nasopharynx
== END 2020-07-27 08:17 ==
PROVIDERS: PCP Internal Medicine; Visit Provider Family Medicine
DX: Z11.59 Encounter for screening for other viral diseases (principal)
CPT/HCPCS: U0003

== ENCOUNTER 2021-06-27 02:55 | Outpatient (CLI) | payer MEDICARE, BC, SELFPAY ==
[2021-06-27 08:04] LABS: COMMENT (LAB VIEW ONLY) 104.96 mg/dL; Microalb ug/mg Crea 5.1 ug/mg Cr
[2021-06-27 08:06] LABS: Anion Gap 8.6 mmol/L (3-11); BUN 15 mg/dL (7-18); CO2 27.4 mmol/L (21.0-32.0); Calculated LDL 68 mg/dL (<100); Chloride 107 mmol/L (98-107); Cholesterol 147 mg/dL (<200); Glucose 115 mg/dL (74-106); HDL Cholesterol 69 mg/dL (40-60); Potassium 4.7 mmol/L (3.5-5.1); Sodium 143 mmol/L (136-145); Triglyceride 52 mg/dL (<150)
== END 2021-06-27 02:56 | disposition home or self-care (01) ==
LOC: LBO 02:55
PROVIDERS: PCP Internal Medicine; Visit Provider Internal Medicine
DX: E78.00 Pure hypercholesterolemia, unspecified (principal); I10 Essential (primary) hypertension; E78.5 Hyperlipidemia, unspecified
CPT/HCPCS: 36415; 80048; 80061; 82043; 82570

== ENCOUNTER 2022-10-28 13:27 | Outpatient (REF) | payer MEDICARE, BC, SELFPAY ==
[2022-10-29 19:24] LABS: COVID-19 RT-PCR UVMMC Result Negative (Negative)
[2022-10-29 19:29] LABS: Influenza A RNA Result Negative (Negative); Influenza B RNA Result Negative (Negative); RSV RNA Result Positive (Negative)
== END 2022-10-28 13:28 | disposition home or self-care (01) ==
LOC: LBN 13:27
PROVIDERS: PCP Nurse Practitioner Adult Health; Visit Provider Nurse Practitioner
DX: Z20.822 Contact with and (suspected) exposure to COVID-19 (principal); R05.9 Cough, unspecified; R06.02 Shortness of breath; R09.89 Other specified symptoms and signs involving the circulatory and respiratory systems
CPT/HCPCS: 87631; U0003

== ENCOUNTER 2022-11-13 10:52 | Emergency (ER) | payer MEDICARE, BC, SELFPAY ==
[2022-11-13 11:15] VITALS: BP 141/78; PULSE 73; RESP 17; TEMP 36.1; O2SAT 99
--- NOTE | 2022-11-13 11:30 | DI.RAD_ITS ---
Exam(s) XR ANKLE LT COMPLETE EXAM: XR ANKLE LT COMPLETE CLINICAL HISTORY: pain left ankle, hx of gout. TECHNIQUE: 2D digital imaging was performed. COMPARISON: No exams were available for comparison FINDINGS: 3 views No evidence of fracture or widening of the ankle mortise. Talar dome unremarkable. No degenerative changes in the ankle and subtalar joints. No osseous lesions nor. Moderate size inferior calcaneal spur is evident. 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 IMPRESSION: No acute osseous findings. 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 DATA REPOSITORY: RADIATION DOSE DELIVERED:
[2022-11-13 12:01] LABS: Abs Immature Grans 0.01 10^3/uL (0.0-0.06); Absolute Basophil Count 0.06 10^3/uL (0.0-0.2); Absolute Eosinophil Count 0.24 10^3/uL (0.0-0.7); Absolute Lymphocyte Count 0.86 10^3/uL (1.2-3.4); Absolute Monocyte Count 0.69 10^3/uL (0.1-0.8); Absolute Neutrophil Count 3.48 10^3/uL (1.2-6.7); Basophils % 1.1; Eosinophils % 4.5; HCT 34.8 % (40.0-50.0); HGB 10.1 g/dL (13.5-17.5); Immature Grans % 0.2; Lymphocytes % 16.1; MCH 24.6 pg (27.0-33.0); MCV 85 fL (80-95); MPV 9.4 fL (8.0-11.0); Monocytes % 12.9; Neutrophils % 65.2; Platelet Count 318 10^3/uL (130-400); RDW 16.4 % (11.8-14.1); RDW-SD 50.6 fL; WBC 5.34 10^3/uL (4.4-10.8)
[2022-11-13 12:12] LABS: ESR 13 mm/hr (0-20)
[2022-11-13 12:17] LABS: ALT 25 U/L (16-63); AST 22 U/L (15-37); Albumin 3.7 g/dL (3.4-5.0); Alkaline Phosphatase 93 U/L (46-116); BUN 14 mg/dL (7-18); Bilirubin, Total 0.6 mg/dL (0.2-1.0); C-Reactive Protein 0.31 mg/dL (0.0-0.3); CREATININE 1.1 mg/dL (0.70-1.30); Calcium 8.9 mg/dL (8.5-10.1); Chloride 105 mmol/L (98-107); Estimated GFR 71.77 (mL/min/1.73m2); Glucose 231 mg/dL (74-106); Potassium 4.6 mmol/L (3.5-5.1); Sodium 139 mmol/L (136-145); Total Protein 7.2 g/dL (6.4-8.2); Uric Acid 4.6 mg/dL (3.5-7.2)
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
--- NOTE | 2022-11-19 13:47 | NUR.NOTE ---
Nursing Note:Accessed patient chart to print provider note to be faxed to [facility] for billing purposes.
== END 2022-11-13 13:53 | disposition home or self-care (01) ==
PROVIDERS: Emergency Provider Physician Assistant; PCP Nurse Practitioner Adult Health
DX: M25.572 Pain in left ankle and joints of left foot (principal); M79.89 Other specified soft tissue disorders; E11.9 Type 2 diabetes mellitus without complications; I10 Essential (primary) hypertension; E03.9 Hypothyroidism, unspecified; Z79.82 Long term (current) use of aspirin; Z79.84 Long term (current) use of oral hypoglycemic drugs
CPT/HCPCS: 36415; 80053; 85652; 99283; 73610; 84550; 85025; 86140; 99284

== ENCOUNTER 2022-12-22 00:56 | Outpatient (CLI) | payer MEDICARE, BC, SELFPAY ==
[2022-12-22 08:54] LABS: Hemoglobin A1C 6.9 % (<5.7)
[2022-12-22 09:15] LABS: COMMENT (LAB VIEW ONLY) 88.78 mg/dL; Microalb ug/mg Crea 5.7 ug/mg Cr
[2022-12-22 09:24] LABS: Anion Gap 10.6 mmol/L (3-11); BUN 13 mg/dL (7-18); CO2 25.4 mmol/L (21.0-32.0); CREATININE 0.9 mg/dL (0.70-1.30); Calculated LDL 62 mg/dL (<100); Chloride 103 mmol/L (98-107); Cholesterol 156 mg/dL (<200); Estimated GFR 91.31 (mL/min/1.73m2); Glucose 171 mg/dL (74-106); HDL Cholesterol 72 mg/dL (40-60); Potassium 4.1 mmol/L (3.5-5.1); Sodium 139 mmol/L (136-145); Triglyceride 110 mg/dL (<150)
[2022-12-22 09:47] LABS: FREE T4 0.89 ng/dL (0.76-1.46)
== END 2022-12-22 00:57 | disposition home or self-care (01) ==
LOC: LBO 00:57
PROVIDERS: PCP Nurse Practitioner Adult Health; Visit Provider Nurse Practitioner Adult Health
DX: I10 Essential (primary) hypertension (principal); E78.5 Hyperlipidemia, unspecified; E03.9 Hypothyroidism, unspecified; E11.9 Type 2 diabetes mellitus without complications; Z79.4 Long term (current) use of insulin
CPT/HCPCS: 36415; 80048; 80061; 82043; 82570; 83036; 84439; 84443

== ENCOUNTER 2023-01-07 02:54 | Outpatient (CLI) | payer MEDICARE, BC, SELFPAY ==
[2023-01-07 14:37] LABS: Abs Immature Grans 0.01 10^3/uL (0.0-0.06); Absolute Basophil Count 0.05 10^3/uL (0.0-0.2); Absolute Eosinophil Count 0.15 10^3/uL (0.0-0.7); Absolute Lymphocyte Count 1.51 10^3/uL (1.2-3.4); Absolute Monocyte Count 0.81 10^3/uL (0.1-0.8); Absolute Neutrophil Count 3.84 10^3/uL (1.2-6.7); Basophils % 0.8; Eosinophils % 2.4; HCT 35.4 % (40.0-50.0); HGB 10.1 g/dL (13.5-17.5); Immature Grans % 0.2; Lymphocytes % 23.7; MCH 23.3 pg (27.0-33.0); MCHC 28.5 % (32.0-36.0); MCV 82 fL (80-95); MPV 9.7 fL (8.0-11.0); Monocytes % 12.7; Neutrophils % 60.2; Platelet Count 298 10^3/uL (130-400); RBC 4.33 10^6/uL (4.36-5.78); RDW 17.6 % (11.8-14.1); RDW-SD 51.8 fL; Reticulocyte 1.3 % (0.5-2.4); WBC 6.37 10^3/uL (4.4-10.8)
[2023-01-07 15:06] LABS: Burr Cells (echinocyte) 2+; Polychromasia Present
[2023-01-07 15:15] LABS: Ferritin 10 ng/mL (26-388); Folate 14.5 ng/mL (8.6-20.0)
[2023-01-07 15:18] LABS: Vitamin B12 > 2000 pg/mL (193-986)
[2023-01-07 15:32] LABS: Iron 21 ug/dL (65-175); Total Iron Binding Capacity 417 ug/dL (250-450); Transferrin Sat 5 % (20-55)
== END 2023-01-07 02:55 | disposition home or self-care (01) ==
PROVIDERS: PCP Nurse Practitioner Adult Health; Referring Provider Nurse Practitioner Adult Health; Visit Provider Nurse Practitioner Adult Health
DX: E11.9 Type 2 diabetes mellitus without complications (principal); D64.9 Anemia, unspecified
CPT/HCPCS: 36415; 82607; 82728; 82746; 83540; 83550; 85025; 85045

== ENCOUNTER 2023-02-06 01:20 | Outpatient (RCR) | payer MEDICARE, BC, SELFPAY ==
[2023-01-23] MEDS: IRON SUCROSE COMPLEX 200 MG in Normal Saline 100 ML 440 MG IVPB (09:14)
[2023-01-30] MEDS: IRON SUCROSE COMPLEX 200 MG in Normal Saline 100 ML 440 MG IVPB (09:09)
[2023-01-30] MEDS: Normal Saline Flush 10 ML SYR IVP (09:09)
[2023-02-06] MEDS: IRON SUCROSE COMPLEX 200 MG in Normal Saline 100 ML 440 MG IVPB (09:17)
[2023-02-06] MEDS: Normal Saline Flush 10 ML SYR IVP (09:17)
== END 2023-02-06 23:59 | disposition home or self-care (01) ==
LOC: INF 01:20
PROVIDERS: PCP Nurse Practitioner Adult Health; Visit Provider Nurse Practitioner Adult Health
DX: D50.9 Iron deficiency anemia, unspecified (principal)
CPT/HCPCS: 96365; J1756

== ENCOUNTER 2023-02-22 09:26 | Emergency (ER) | payer MEDICARE, BC, SELFPAY ==
[2023-02-22 09:31] VITALS: PULSE 80; RESP 18; O2SAT 100
[2023-02-22 09:33] VITALS: BP 155/84; TEMP 36.3
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
--- NOTE | 2023-02-22 11:31 | NUR.NOTE ---
Referral per Bob Macdonald for a re-check later this week for an abnormal skin lesion. Put the referral in the care manger's box for f/u assistance. See the provider's note for additional info. Nursing Note:
== END 2023-02-22 09:52 | disposition home or self-care (01) ==
PROVIDERS: Emergency Provider Nurse Practitioner Family; PCP Nurse Practitioner Adult Health
DX: L73.9 Follicular disorder, unspecified (principal)
CPT/HCPCS: 99283

== ENCOUNTER 2023-04-01 05:18 | Outpatient (CLI) | payer MEDICARE, BC, SELFPAY ==
[2023-04-01 07:42] LABS: Abs Immature Grans 0.02 10^3/uL (0.0-0.06); Absolute Basophil Count 0.05 10^3/uL (0.0-0.2); Absolute Eosinophil Count 0.22 10^3/uL (0.0-0.7); Absolute Lymphocyte Count 1.68 10^3/uL (1.2-3.4); Absolute Neutrophil Count 2.64 10^3/uL (1.2-6.7); Basophils % 0.9; Eosinophils % 4.1; HCT 47.5 % (40.0-50.0); HGB 15.5 g/dL (13.5-17.5); Immature Grans % 0.4; Lymphocytes % 31.6; MCH 30.8 pg (27.0-33.0); MCHC 32.6 % (32.0-36.0); MCV 94 fL (80-95); MPV 9.9 fL (8.0-11.0); Monocytes % 13.2; Neutrophils % 49.8; Platelet Count 247 10^3/uL (130-400); RBC 5.03 10^6/uL (4.36-5.78); RDW 23.9 % (11.8-14.1); RDW-SD 78.5 fL; WBC 5.31 10^3/uL (4.4-10.8)
[2023-04-01 08:12] LABS: Macrocytosis 2+; Microcytosis 1+
[2023-04-01 08:21] LABS: Anisocytosis 3+; Diff Comment Diff Reviewed
[2023-04-01 09:05] LABS: Iron 103 ug/dL (65-175); Total Iron Binding Capacity 287 ug/dL (250-450); Transferrin Sat 36 % (20-55)
[2023-04-01 09:18] LABS: Ferritin 67 ng/mL (26-388)
[2023-04-02 12:27] LABS: Transferrin 221 mg/dL (201-352)
== END 2023-04-01 05:19 | disposition home or self-care (01) ==
LOC: LBO 05:18
PROVIDERS: PCP Nurse Practitioner Adult Health; Visit Provider Nurse Practitioner Adult Health
DX: D50.8 Other iron deficiency anemias (principal)
CPT/HCPCS: 36415; 82728; 83540; 83550; 84466; 85025

== ENCOUNTER → 2023-06-17 08:58 | Outpatient (BNVA) | payer MEDICARE, BC, SELFPAY | PROVIDERS: PCP Nurse Practitioner Adult Health; Referring Provider Nurse Practitioner Adult Health; Visit Provider Surgery | DX: Z12.11 Encounter for screening for malignant neoplasm of colon (principal); Z86.010 Personal history of colon polyps ==

== ENCOUNTER 2023-07-06 02:33 | Outpatient (CLI) | payer MEDICARE, BC, SELFPAY ==
[2023-07-06 09:50] LABS: Abs Immature Grans 0.02 10^3/uL (0.0-0.06); Absolute Basophil Count 0.05 10^3/uL (0.0-0.2); Absolute Eosinophil Count 0.14 10^3/uL (0.0-0.7); Absolute Lymphocyte Count 1.32 10^3/uL (1.2-3.4); Absolute Monocyte Count 0.62 10^3/uL (0.1-0.8); Absolute Neutrophil Count 3.38 10^3/uL (1.2-6.7); Basophils % 0.9; Eosinophils % 2.5; HCT 45.9 % (40.0-50.0); HGB 15.7 g/dL (13.5-17.5); Immature Grans % 0.4; Lymphocytes % 23.9; MCH 35.4 pg (27.0-33.0); MCHC 34.2 % (32.0-36.0); MCV 104 fL (80-95); MPV 9.6 fL (8.0-11.0); Monocytes % 11.2; Neutrophils % 61.1; Platelet Count 205 10^3/uL (130-400); RBC 4.43 10^6/uL (4.36-5.78); RDW 14.3 % (11.8-14.1); RDW-SD 55.3 fL; WBC 5.53 10^3/uL (4.4-10.8)
[2023-07-06 10:43] LABS: Ferritin 76 ng/mL (26-388); Vitamin B12 252 pg/mL (193-986)
[2023-07-06 11:00] LABS: Iron 132 ug/dL (65-175)
== END 2023-07-06 02:34 | disposition home or self-care (01) ==
LOC: LBO 02:33
PROVIDERS: PCP Nurse Practitioner Adult Health; Visit Provider Nurse Practitioner Adult Health
DX: D50.9 Iron deficiency anemia, unspecified (principal); D50.8 Other iron deficiency anemias; E11.9 Type 2 diabetes mellitus without complications; E03.9 Hypothyroidism, unspecified
CPT/HCPCS: 36415; 82607; 82728; 83540; 85025

== ENCOUNTER 2023-07-09 06:11 | Day surgery (SDC) | payer MEDICARE, BC, SELFPAY ==
--- NOTE | 2023-07-08 18:14 | W.ANESPRE ---
General Info Date of Service Date Performed: 07/09/23 Height: 5 ft 10 in Weight: 69.57 kg Body Mass Index (BMI): 22.0 Surgical Procedure: Operation Date: 07/09/23 07:35 Proposed Procedure Side Surgeon radha Arthur MD Meds Allergies and Home Medications Allergies Allergy/AdvReac Type Severity Reaction Status Date / Time Penicillins Allergy tongue Verified 07/09/23 06:24 swelled hydrochlorothiazide AdvReac Mild hypomagnese Verified 07/09/23 06:24 eufemia losartan AdvReac Mild Other (See Verified 07/09/23 06:24 Comment) codeine AdvReac upset Verified 07/09/23 06:24 stomach Bee stings Allergy Unknown Uncoded 07/09/23 06:24 Home Medication Medication Instructions Recorded aspirin 81 mg tablet,delayed 81 mg PO DAILY 02/24/13 release (Aspir-) minocycline 100 mg capsule 100 mg PO .Q MON & THURSDAY PRN 02/24/13 ibuprofen 200 mg tablet (Advil) 400 mg PO Q6H PRN 07/06/19 lancets (OneTouch UltraSoft #100 strips 02/21/20 Lancets) blood sugar diagnostic #100 strips 11/13/21 cyanocobalamin (vitamin B-12) 1,000 mcg subcut QMONTH B12 06/11/22 1,000 mcg/mL injection solution deficiency #3 vials epinephrine 0.3 mg/0.3 mL 0.3 mg (0.3 mL) IM ONCE #2 ea 06/30/22 injection, auto-injector (EpiPen 2-Wellington) atorvastatin 40 mg tablet See Rx Instructions .Route 08/06/22 .COMPLEX #90 tabs losartan 100 mg tablet 100 mg PO DAILY #90 tab-caps 12/10/22 metoprolol succinate 25 mg 25 mg PO DAILY #90 tabs 12/10/22 tablet,extended release 24 hr glipizide 5 mg tablet, extended 5 mg PO DAILY #90 tabs 12/29/22 release 24 hr ferrous sulfate 325 mg (65 mg 325 mg PO BID #180 tabs 01/14/23 iron) tablet metformin 1,000 mg tablet See Rx Instructions .Route 02/11/23 .COMPLEX #180 tabs dapagliflozin propanediol 10 mg 10 mg PO DAILY #90 tabs 03/10/23 tablet gabapentin 300 mg capsule 300 mg PO TID #270 tab-caps 03/11/23 mupirocin 2 % topical ointment 1 applic topical BID #15 grams 03/11/23 omeprazole magnesium 20 mg 20 mg PO .biw PRN GERD #60 tabs 06/17/23 tablet,delayed release (Prilosec OTC) Current Visit Medications: Current Medications Generic Name Dose Route Start Last Admin Trade Name Freq PRN Reason Stop Dose Admin Ringer's Solution 1,000 mls @ 80 mls/hr 07/09/23 06:00 IV 08/07/23 23:59 INFUSION AMBAR IV Miscellaneous Supplies 1 each 07/09/23 06:00 Iv Access IV 08/07/23 23:59 DIRECTED AMBAR Sodium Chloride 0 ml 07/09/23 06:00 Normal Saline Flush 10 Ml Syr IV 08/07/23 23:59 PRN PRN Sodium Chloride 0 ml 07/09/23 06:00 Normal Saline 10 Ml Vial IJ 08/07/23 23:59 DIRECTED PRN Sterile Water 0 ml 07/09/23 06:00 Water,Injection,Sterile 10 Ml Vial IJ 08/07/23 23:59 DIRECTED PRN PFSH Active Problems Active Problems: Problem Status Onset Code Iron (Fe) deficiency anemia ~01/2023 D50.9 B12 deficiency ~2018 Subclinical hypothyroidism 05/26/13 E03.9 Other and unspecified hyperlipidemia 03/22/13 E78.5 Essential hypertension 06/23/13 I10 Diabetes mellitus type 2, controlled, without complications 2000 E11.9 Cervical radiculopathy at C6 05/21/16 M54.12 Medical History Medical History Acne rosacea Actinic keratosis (~10/2021) 10/14/[address] Roa with LN. Anemia (~2019) initially characterize as iron def Cervical radiculopathy at C6 Diabetes Diverticulosis (~2017) Mod to severe on colonoscopy Erectile dysfunction Erectile dysfunction (01/29/12) Gastroesophageal reflux disease (01/29/12) intermittent prilosec OTC GERD (gastroesophageal reflux disease) Hyperlipidemia Hypertension Hypomagnesemia Hypomagnesemia (05/26/13) on HCTZ Hypothyroidism subacute. No meds Osteoarth NOS-unspec (01/29/12) Osteoarthritis Other vitamin B12 deficiency anemia (12/30/17) probably due to metformin Plantar fasciitis Premature atrial contraction (05/26/13) Holter 04/2013: PAC 300/h, brief SVT Resting tremor Rosacea (01/29/12) Seborrheic dermatitis, unspecified Sensorineural hearing loss (SNHL) of both ears Sensory hearing loss, bilateral (08/29/14) Dr. Dickerson Vertigo Surgical History Surgical History Colonoscopy - IV Sedation (~2007) 2008-nl Colonoscopy - MAC (06/29/18) Tobacco Smoking/Tobacco Use Status: Former Tobacco Use Alcohol Alcohol Intake: current Alcohol intake frequency: 0-2 drinks per day Alcohol type: other Substance Use Substance use: Never Substance use type: does not use Vital Signs and Lab Results Vital Signs Most Recent Vital Signs in EMR: Temp Pulse Resp BP Pulse Ox 36.6 C 74 17 147/88 H 97 07/09/23 06:18 07/09/23 06:18 07/09/23 06:18 07/09/23 06:18 07/09/23 06:18 Lab Results Blood Type / Crossmatch: No Data to Display Complete Blood Count: White Blood Count 5.53 10^3/uL (4.4-10.8) 07/06/23 09:40 Red Blood Count 4.43 10^6/uL (4.36-5.78) 07/06/23 09:40 Hemoglobin 15.7 g/dL (13.5-17.5) 07/06/23 09:40 Hematocrit 45.9 % (40.0-50.0) 07/06/23 09:40 Platelet Count 205 10^3/uL (130-400) 07/06/23 09:40 Complete Metabolic Panel: No Data to Display Liver Function Panel: No Data to Display Coagulation Panel: No Data to Display Cardiac Panel: No Data to Display Arterial Blood Gas: No Data to Display Venous Blood Gas: No Data to Display Pancreas Panel: No Data to Display Thyroid Panel: No Data to Display Infectious Disease: No Data to Display Blood Cultures: No Data to Display Toxicology Panel: No Data to Display Imaging and Studies Imaging and Studies Study information below may be from another EMR and interpreted by another provider. Please see original notes in EMR for more complete details. EKG Summary: 07/29: sinus, MA >220. Stress Test Summary: 06/23: maximal HR, no ECG evidence of ischemia. Echocardiogram Summary: 06/21: LVEF 55-60%, mild septal hypokinesis mild AR, mild TR. Anesthesia Assessment and Plan Anesthesia History Personal History: No History of Anesthesia Complications Family History: No Family History of Anesthesia Complications Exercise Tolerance Exercise Tolerance: Metabolic Equivalents>4 Cardiac & Pulmonary Exam Cardiac Exam: Normal S1/S2 Heart Sounds Pulmonary Exam: Clear Bilateral Breath Sounds Implantable Cardiac Device Does patient have a Pacemaker or an ICD?: No Airway Exam Known Difficult Airway: No Mallampati Class: 3 Mouth Opening: Normal (> 3cm) Thyromental Distance: Less than 3 cm Neck Range of Motion: Limited ROM Neck Circumference: Normal Teeth Condition: Normal Dentition and Removable Dentures/Plates Upper ASA Classification ASA Score: ASA 2 Emergency Case?: No NPO Status NPO Status: NPO Clears >2 hours, Solids >8 hours Anesthesia Plan Resuscitation Status: Full Code Anesthesia Technique: General Anesthesia Airway Planned: Natural Airway Monitors Used: Standard Monitors Preoperative Comments:: 73 yo male for colo. Sig PMHx: HTN (losartan, metoprolol), GERD (omeprazole, well controlled), DM (metformin, glipizide, 138 today, last A1c per him 6), cervical radiculopathy, hypothyroid, PACs, former smoker, occ EtOH. Previous colo: - prop, natural airway, no issues
--- NOTE | 2023-07-08 22:23 | W.PM.DSUDISC ---
Date of service: 07/09/23 Time of Service: 07:51 Discharge Plan Disposition Patient Disposition: Home Condition: Good Discharge Details Reason For Visit: screening colonoscopy Attending Provider: Umair Arthur Primary Care Provider: Nay Lemons Home Meds and New Rx's Prescriptions: Continued epinephrine [EpiPen 2-[place]] 0.3 mg/0.3 mL auto-injector 0.3 mg IM ONCE Qty: 2 0RF Rx Instructions: as a single dose glipizide 5 mg tablet extended release 24hr 5 mg PO DAILY Qty: 90 3RF Rx Instructions: Diabetes ibuprofen [Advil] 200 mg tablet 400 mg PO Q6H PRN Patient Comments: from ER for Left knee pain. mupirocin 2 % ointment 1 applic topical BID Qty: 15 0RF Rx Instructions: May substitute with cream if less expensive; apply thin layer until area/lesion resolved gabapentin 300 mg capsule 300 mg PO TID Qty: 270 3RF Rx Instructions: [facility] minocycline 100 MG capsule 100 mg PO .Q THU & THURSDAY PRN Rx Instructions: one tablet twice per week. Dr. Roa aspirin [Aspir-81] 81 MG tablet,delayed release (DR/EC) 81 mg PO DAILY (DME) lancets [OneTouch UltraSoft Lancets] Misc 1 ea Miscellaneous DAILY Qty: 100 2RF Rx Instructions: to test blood sugars E11.9 (DME) blood sugar diagnostic Strip 1 ea Miscellaneous DAILY Qty: 100 3RF Rx Instructions: use qd, to maintain AIC less than 7, E11.9 cyanocobalamin (vitamin B-12) 1,000 mcg/mL solution 1,000 mcg subcut QMONTH Qty: 3 3RF atorvastatin 40 mg tablet See Rx Instructions .ROUTE .COMPLEX Qty: 90 3RF Dose Instruction: TAKE 1 TABLET BY MOUTH DAILY Rx Instructions: TAKE 1 TABLET BY MOUTH DAILY metoprolol succinate 25 mg tablet extended release 24 hr 25 mg PO DAILY Qty: 90 3RF losartan 100 mg tablet 100 mg PO DAILY Qty: 90 3RF ferrous sulfate 325 mg (65 mg iron) tablet 325 mg PO BID Qty: 180 3RF Rx Instructions: Start with 1 tab per day & increase to GI tolerance for anemia metformin 1,000 mg tablet See Rx Instructions .ROUTE .COMPLEX Qty: 180 3RF Dose Instruction: TAKE 1 TABLET BY MOUTH TWICE DAILY FOR DIABETES Rx Instructions: TAKE 1 TABLET BY MOUTH TWICE DAILY FOR DIABETES dapagliflozin propanediol 10 mg tablet 10 mg PO DAILY Qty: 90 3RF omeprazole magnesium [Prilosec OTC] 20 mg tablet,delayed release (DR/EC) 20 mg PO .biw PRN (Reason: GERD) Qty: 60 3RF Rx Instructions: tues & sat Discontinued polyethylene glycol 3350 17 gram/dose powder 238 g PO ONCE Qty: 238 0RF Rx Instructions: take per colonoscopy instructions bisacodyl [Dulcolax (bisacodyl)] 5 mg tablet,delayed release (DR/EC) 5 mg PO ONCE Qty: 4 0RF Rx Instructions: take per colonoscopy instructions Discharge Instructions Additional Instructions: And, was great seeing you today, and your colonoscopy was totally fine. You have some mild internal hemorrhoids. These are typically a little bit irritated by the bowel prep. In that regards, I do not think you need to do anything special with them. He also have some diverticulosis. These are small weak spots in the colon wall. Majority of yours are within the sigmoid colon, which is the typical location, but there are some other scattered along the length of your large intestine. I have attached some general information here regarding basic management of diverticular disease. They can become infected and inflamed, and that is typically experienced as sharp pain that is usually on the left side or lower portion of the abdomen. In some cases, patients need to be treated with antibiotics. The best way to minimize the complications from them is to maintain a well-balanced diet that is rich in dietary fiber. Staying well-hydrated might also be helpful. Based on the previous colonoscopy, which detected tubular adenomas, combined with this negative colonoscopy, the recommendation is that you undergo your next colonoscopy in 10 years. 1. If tolerated, consume a soft, low fiber diet for 1-2 days. 2. Do not drive, drink alcohol, operate machinery, make critical decisions, or do activities that require coordination or balance for 24 hours. 3. Because air was put into your colon during the procedure, expelling air from your rectum (passing gas or farting) is normal. 4. You may not have a bowel movement for 1-3 days because of the colonoscopy prep. This is normal. 5. Go directly to the emergency room if you notice any of the following: Develop chills (warm to touch), or if you have a thermometer and your temperature is above 101 Difficulty breathing or difficultly swallowing Persistent vomiting Severe abdominal pain, other than gas cramps Severe chest pain Black, tarry stools Any bleeding ? exceeding one tablespoon 6. Call your physician if the site where your intravenous was started becomes red, swollen, painful, and warm to touch. 7. Your physician has reviewed your pre-procedure medications. Please continue to take those medications as previously ordered. You will be given specific information/education regarding any changes to your medications before leaving. Stand Alone Forms: Anesthesia Discharge InstKemar, Jon Plunkett (DSU) Activity:: Activity as Tolerated Diet:: As Tolerated Discharge Orders Discharge Orders: Discharge Order (Routine); Ordered 07/08/23 Ordered By: Umair Arthur DS: Diagnosis Discharge Diagnosis (1) Screen for colon cancer: Status: Acute Asessment and Plan: Negative screening colonoscopy
--- NOTE | 2023-07-08 22:25 | W.COLOREPORT ---
Date of service: 07/09/23 Time of Service: 07:55 Colonoscopy Report Date of procedure: 07/09/23 Pre-op diagnosis general: Screening colonoscopy Post-op diagnosis procedure note: other (Diverticulosis) Procedure: Colonoscopy Surgeon: Umair Arthur Anesthesia Type: General:No Airway Estimated blood loss (mL): 0 Pathology: none sent Complications: None Disposition: same day Indications: Elton is a 73 year old man who needs a screening colonoscopy Prep: Miralax/Dulcolax Procedure Start Time: 07:27 Procedure End Time: 07:39 Retraction Time: 9 Findings: Diverticulosis Procedure Description: After the induction of monitored anesthetic care, and with the patient in left lateral decubitus position, I began by performing an external anorectal exam.? Perineum and skin were normal, as was the anal verge.? There was no evidence of external hemorrhoids.? Next, I performed a digital rectal exam.? I did not appreciate any abnormal findings.? Next, I advanced a colonoscope into the rectal vault.? I performed retroflexion.? There is grade 1 internal hemorrhoids.? Using insufflation, I then advanced the colonoscope beyond the rectal folds and into the sigmoid colon before advancing towards the cecum.? The quality of the prep was excellent.? There was sigmoid diverticulosis. As I advanced through the descending colon, and across the transverse and ascending colon's, there was evidence of diverticula here as well. Although a majority were focused in the sigmoid colon, diverticula certainly extended into all other areas of the colon as well. The scope was noted to be in the cecum by identification of the ileocecal valve and appendiceal orifice.? I then began withdrawing the colonoscope using repeated irrigation as necessary for full evaluation of the colonic mucosa. ?I did not see any signs of tumors or polyps anywhere along the length of the colon. Once the scope was withdrawn to the level of the rectum, great care was taken to examine portions of the rectal folds.? Finally, the scope was withdrawn and the patient was brought to the same-day surgery recovery unit as the anesthetic wore off. ?The findings and instructions were shared with the patient prior to discharge.
[2023-07-09 06:18] VITALS: BP 147/88; PULSE 74; RESP 17; TEMP 36.6; O2SAT 97
[2023-07-09] MEDS: Lactated Ringers 1,000 ML 80 ML IV (06:38)
[2023-07-09 07:02] VITALS: BMI 22.0
[2023-07-09 07:45] VITALS: BP 89/58; PULSE 57; RESP 14; TEMP 36.5; O2SAT 99
--- NOTE | 2023-07-09 07:55 | W.ANESPOSTOP ---
Postoperative Evaluation Date, Time and Location Date Performed: 07/09/23 Time Performed: 07:55 Patient Location: Day Surgery Unit Vital Signs Most Recent Imported Vital Signs: Most Recent Vital Signs Temp Pulse Resp BP Pulse Ox 36.5 C 57 L 14 89/58 L 99 07/09/23 07:45 07/09/23 07:45 07/09/23 07:45 07/09/23 07:45 07/09/23 07:45 Pain Score Most Recent Pain Score: Most Recent Pain Score Pain Level 0 07/09/23 07:45 Assessment Mental Status: Awake (Alert & Oriented to Patient Baseline) Airway and Respiratory Function: Patent airway with normal (patient baseline) respiratory exam Cardiovascular Function: Hemodynamically Stable Hydration Status: Adequately Hydrated Nausea & Vomiting: No Nausea or Vomiting Pain: Pt. Denies Any Pain Peripheral Nerve Block: Patient did not receive a nerve block
[2023-07-09 08:15] VITALS: BP 103/59; PULSE 58; RESP 16; TEMP 36.2; O2SAT 99
== END 2023-07-09 08:37 | disposition home or self-care (01) ==
PROVIDERS: PCP Nurse Practitioner Adult Health; Visit Provider Surgery
PROC: 0DJD8ZZ Inspection of Lower Intestinal Tract, Via Natural or Artificial Opening Endoscopic (ICD-10-PCS; CPT 45378; principal; 2023-07-09 07:30)
DX: Z12.11 Encounter for screening for malignant neoplasm of colon (principal); K57.30 Diverticulosis of large intestine without perforation or abscess without bleeding; E11.9 Type 2 diabetes mellitus without complications
CPT/HCPCS: G0121

== ENCOUNTER 2023-10-19 04:39 | Outpatient (CLI) | payer MEDICARE, BC, SELFPAY ==
[2023-10-19 09:41] LABS: Abs Immature Grans 0.02 10^3/uL (0.0-0.06); Absolute Basophil Count 0.04 10^3/uL (0.0-0.2); Absolute Eosinophil Count 0.19 10^3/uL (0.0-0.7); Absolute Lymphocyte Count 1.13 10^3/uL (1.2-3.4); Absolute Monocyte Count 0.71 10^3/uL (0.1-0.8); Absolute Neutrophil Count 3.44 10^3/uL (1.2-6.7); Basophils % 0.7; Eosinophils % 3.4; HCT 48.7 % (40.0-50.0); HGB 16.2 g/dL (13.5-17.5); Immature Grans % 0.4; Lymphocytes % 20.4; MCH 33.8 pg (27.0-33.0); MCHC 33.3 % (32.0-36.0); MCV 102 fL (80-95); MPV 10.1 fL (8.0-11.0); Monocytes % 12.8; Neutrophils % 62.3; Platelet Count 226 10^3/uL (130-400); RBC 4.79 10^6/uL (4.36-5.78); RDW 12.1 % (11.8-14.1); WBC 5.53 10^3/uL (4.4-10.8)
[2023-10-19 10:23] LABS: Hemoglobin A1C 7.8 % (<5.7)
[2023-10-19 10:31] LABS: Anion Gap 11.3 mmol/L (3-11); BUN 12 mg/dL (7-18); CO2 26.7 mmol/L (21.0-32.0); Calcium 9.1 mg/dL (8.5-10.1); Chloride 102 mmol/L (98-107); Estimated GFR 79.97 (mL/min/1.73m2); FREE T4 1.01 ng/dL (0.76-1.46); Glucose 225 mg/dL (74-106); Potassium 4.2 mmol/L (3.5-5.1); Sodium 140 mmol/L (136-145); TSH 4.45 uIU/mL (0.36-3.74)
[2023-10-19 11:07] LABS: Ferritin 156 ng/mL (26-388); Folate 13.6 ng/mL (8.6-20.0); Vitamin B12 1322 pg/mL (193-986)
[2023-10-19 17:34] LABS: Lab Add On Test DONE
[2023-10-20 12:53] LABS: IgA 229 mg/dL (85-499); Interpretation (See Note); Tissue Transglutaminase IgA <4.0 CU (<20.0)
[2023-10-23 09:58] LABS: Methylmalonic Acid 0.15 nmol/mL (<=0.40)
== END 2023-10-19 04:40 | disposition home or self-care (01) ==
LOC: LBO 04:39
PROVIDERS: Absent Provider Nurse Practitioner Adult Health; PCP Nurse Practitioner Adult Health; Referring Provider Nurse Practitioner Adult Health; Visit Provider Nurse Practitioner Adult Health
DX: E11.9 Type 2 diabetes mellitus without complications (principal); E03.9 Hypothyroidism, unspecified; M54.12 Radiculopathy, cervical region
CPT/HCPCS: 36415; 80048; 80186; 82784; 83090; 83516; 82607; 82728; 82746; 83036; 84439; 84443; 85025

== ENCOUNTER 2023-10-20 19:10 | Outpatient (CLI) | payer MEDICARE, BC, SELFPAY ==
[2023-10-21 10:19] LABS: Homocysteine 10.9 umol/L (5.0-13.9)
== END 2023-10-20 19:11 | disposition home or self-care (01) ==
LOC: LBO 19:10
PROVIDERS: PCP Nurse Practitioner Adult Health; Visit Provider Nurse Practitioner Adult Health
DX: D64.9 Anemia, unspecified (principal)
CPT/HCPCS: 36415; 83090

== ENCOUNTER → 2023-10-28 02:37 | Outpatient (CLI) | payer MEDICARE, BC, SELFPAY ==
--- NOTE | 2023-10-28 10:00 | DI.RAD_ITS ---
Exam(s) RF BARIUM SWALLOW EXAM: RF BARIUM SWALLOW CLINICAL HISTORY: assess structure fx of liquid swallow,dysphagia,r13.10 TECHNIQUE: 2D and realtime digital imaging was performed. CONTRAST MATERIAL: Oral barium Oral water soluble contrast was administered. COMPARISON: No exams were available for comparison FINDINGS: Esophagram performed standing and recumbent There was no obvious aspiration but there was excessive residue in the valleculae noted. No obvious hypertense upper esophageal sphincter. No Zenker's diverticulum evident. No fixed lesions in the es ophagus. No hiatal hernia nor obvious reflux. No evidence of achalasia. IMPRESSION: No significant focal findings on this esophagram. However, given the history that the patient relate s to me I feel would be prudent to perform a [facility]. RADIATION DOSE DELIVERED: chandu Ventura=24.7 mGy
[2023-10-28] MEDS: Barium Sulfate 98% W/W 140 ML BTL PO (10:02)
[2023-10-28] MEDS: Barium Sulfate 60% W/V 355 ML BTL PO (10:02)
[2023-10-28] MEDS: Simethicone/Sod Bicarb/Cit Ac, 4 gram PACKET 1 PACKET PO (10:04)
== END ==
PROVIDERS: PCP Nurse Practitioner Adult Health; Visit Provider Nurse Practitioner Adult Health
DX: R13.10 Dysphagia, unspecified (principal)
CPT/HCPCS: 74221; J3490

== ENCOUNTER → 2023-11-25 01:31 | Outpatient (CLI) | payer MEDICARE, BC, SELFPAY ==
--- NOTE | 2023-11-25 14:31 | ST.MBS_ITS ---
Date of Service Date of service: 11/25/23 Time of Service: 14:35 Modified Barium Swallow Study Findings: Video fluoroscopic Swallowing Evaluation (VFSE) / Modified Barium Swallow Study (MBSS) Speech Language Pathology Report Patient referred for VFSE/MBSS from Nay Garay given dysphagia to liquids and associated weight loss. HPI & Patient report of function: Elton is a 73 y/o M with GERD and DM2 with recent onset of dysphagia (coughing) with liquids and associated weight loss per PCP. He completed a regular barium swallow study which found no focal abnormalities such as stricture, Zenker's, etc, but did note excessive vallecular residue. Of note his does report a recent blunt force to the head and additional fall, and his feels his memory has changed since then (patient disagrees). No other associated symptoms reported at that time with his PCP. Currently, patient reports he has great difficulty getting a swallow started, especially with liquids, as if he is trying to swallow but his brain isn't talking to his muscles. All Active Problems (Updated 10/26/23 @ 14:35 by Nay Garay NP) Difficulty swallowing liquids (Acute ~09/2023) Screen for colon cancer (Acute) Iron (Fe) deficiency anemia (Acute ~01/2023) B12 deficiency (Acute ~2018) Subclinical hypothyroidism (Chronic 05/26/13) Other and unspecified hyperlipidemia (Chronic 03/22/13) PCEq risk 24% LDL baseline 144 Essential hypertension (Chronic 06/23/13) Diabetes mellitus type 2, controlled, without complications (Chronic 2000) Dx'ed at 52yo; A1C goal 7.5 Cervical radiculopathy at C6 (Chronic 05/21/16) Medical History Anemia (~2019) initially characterize as iron defPlantar fasciitis Seborrheic dermatitis, unspecified Diverticulosis (~2017) Mod to severe on colonoscopyActinic keratosis (~10/2021) 10/14/[address] Roa with [address]Resting tremor Vertigo Sensory hearing loss, bilateral (08/29/14) Dr. Tuan Alonso (01/29/12) Premature atrial contraction (05/26/13) Holter 04/2013: PAC 300/h, brief SVT Other vitamin B12 deficiency anemia (12/30/17) probably due to metformin Osteoarth NOS-unspec (01/29/12) Hypomagnesemia (05/26/13) on HCTZ Gastroesophageal reflux disease (01/29/12) intermittent prilosec OTC Erectile dysfunction (01/29/12) Hypomagnesemia Hypertension Acne rosacea GERD (gastroesophageal reflux disease) Cervical radiculopathy at C6 Sensorineural hearing loss (SNHL) of both ears Osteoarthritis Hypothyroidism subacute. No medsHyperlipidemia Erectile dysfunction Diabetes Surgical History Colonoscopy - MAC (06/2023) 2017Colonoscopy - IV Sedation (~2007) 2007-nl IMPRESSIONS: Swallow safety is largely preserved; swallow efficiency is mildly impaired. Mild oral > pharyngeal dysphagia. Characterized primarily by disorganized lingual transit/guarding, resulting in premature spillage of liquids into the pharynx, piecemeal deglutition. Suspect some aspect of anxiety contributes, though lingual weakness may also be a contributor. Patient maintains excellent laryngeal closure and no penetration or aspiration is observed across all textures. He was able to transit 13mm barium tablet without difficulty through the pharynx. In the pharyngeal phase, noting only mild reduced anterior hyoid movement and UES distension, may be a subtle weakness vs guarding due to sensation of pharyngeal pooling/spillage. No significant pharyngeal residue is noted from initial bolus, but due to piecemeal deglutition with liquids, there is freqeunt oral residue which then spills into the pharynx after the swallow. Patient appears to be at low risk for potential aspiration PNA and/or pulmonary compromise and low risk for malnutrition, low risk for dehydration based on swallow function alone. Dysphagia presentation likely due to lingual discoordination vs weakness, or possibly complicated by anxiety. Pharyngeal phase of swallow is WFL for age. Diet modification is not indicated; non-oral nutrition is not indicated. Swallow prognosis is good given: Positive prognostic factors: Severity, Motivation, Cognitive status, Effectiveness of trialed compensatory strategies, Negative prognostic factors: Age and pending patient/caregiver adoption of risk management as outlined, including use of trialed compensatory strategies. RECOMMENDATIONS: Diet Texture Recommendation:? IDDSI LEVEL SOLIDS 7-Regular Solids LIQUIDS 0-Thin Liquids Please see further details at?www.iddsi.org MEDICATIONS Whole with 0-Thin Liquids or 4-Puree Diet texture modification is per patient's preference; please adjust diet textures at patient's discretion & collaboration with care team. Do not alter medications (e.g., cut)? without advice from your MD or pharmacist. Risk Management Strategies:? Tuck chin while swallowing thin liquids Small sips, approx 10 mL Encourage avoidance of straws Multiple swallows per bolus to encourage clearance of stasis/residue Control risk factors for aspiration pneumonia via (a) thorough oral hygiene & (b) maintaining physical mobility as tolerated PLAN: Patient wishes to trial strategies provided today. Patient could possibly benefit from further treatment to explore additional strategies for efficiency and comfort, but wishes to defer at this time. Please re-refer as needed. ----- OBJECTIVE Videofluoroscopic Swallow Evaluation (VFSE/MBSS) was conducted in the lateral projection by Speech-Language Pathologist, in collaboration with Radiologist, to evaluate oropharyngeal swallow function. Anatomic view under fluoroscopy: WFL, possible mild UES/PES stricture vs ?spinal changes PO Barium Contrast Trials Oral barium water-soluble contrast was administered as follows: IDDSI Level 0 Varibar thin liquid (40% w/v) IDDSI Level 4 Varibar pudding/pureed/extremely thick (40% w/v) IDDSI Level 7 Regular Solid: 1/2 mac cracker coated in 3 mL Varibar pudding 13 mm barium tablet taken with Thin Liquids. MBSImP Component Scores: COMPONENT Scale SCORE 1 Lip closure (0-4) 0 Resulted in no labial escape 2 Hold Position (0-3) 2 Resulted in posterior escape of less than half of the bolus 3 Bolus Preparation (0-4) 1 Resulted in slow prolonged chewing/mashing with complete re-collection 4 Bolus Transport (0-4) 3 Was with repetitive/ disorganized motion of the tongue 5 Oral Residue (0-4) 2 Was a collection on oral structures 6 Swallow Initiation (0-4) 3 Occurred when the bolus head was in the pyriform sinuses 7 Soft Palate Elevation (0-4) 0 Resulted in no bolus between soft palate and the pharyngeal wall 8 Laryngeal Elevation (0-3) 1 Was decreased with partial superior movement of thyroid cartilage/partial approximation of arytenoids to epiglottic petiole 9 Anterior Hyoid Motion (0-2) 1 Demonstrated partial anterior movement 10 Epiglottic Movement (0-2) 0 Resulted in complete inversion 11 Laryngeal Closure (0-2) 0 Was complete with no air or contrast in laryngeal vestibule 12 Pharyngeal Stripping Wave (0-2) 0 Was present and complete 13 Pharyngeal Contraction (0-3) NA 14 PES Opening (0-3) 1 Demonstrated partial distension /partial duration, with partial obstruction of flow 15 Tongue Base Retraction (0-4) 1 Allowed a trace column of contrast or air between tongue base and pharyngeal wall 16 Pharyngeal Residue (0-4) 2 Was a collection of residue within or on pharyngeal structures 17 Esophageal Clearance (0-4) NA Results: COMPONENT Scale SCORE 1 Oral Score (0-18) 11 2 Pharyngeal Score (0-29) 5 3 Esophageal Score (0-4) 0 Penetration-Aspiration Scale: COMPONENT Scale SCORE 1 Thin liquid (1-8) 1 Contrast did not enter the airway 2 [place] thick (1-8) NA 3 Honey thick (1-8) NA 4 Pudding thick (1-8) 1 Contrast did not enter the airway 5 Cookie (1-8) 1 Contrast did not enter the airway Observations not captured in quantitative data: Tongue pumping vs shakiness during liquid>solid oral preparatory phase. Trialed Compensatory Strategies & Outcome: Maneuvers Successful(+) Unsuccessful(-) Postures Successful(+) Unsuccessful(-) 3 second Preparatory Set ?+/- Chin Tuck Posture? ?+ Cough? ? Posterior Head tilt? Reflexive ? Cued? Throat Clear? ? Head Tilt to? Reflexive ? Left? Cued? Right? ? Saliva swallow + ? Head Turn/ Rotate to? ? Supraglottic Swallow? Left? ? Super-supra- glottic Swallow? Right? ? Bolus Modifications Successful(+) Unsuccessful(-) Delivery/Alternating Consistencies ? Follow with Liquid Wash ? Follow with Solid Bolus? Delivery/Via Straw? ? Reduced Volume? ?+/- Reduced Rate of Intake? ?+/- Increased Viscosity? ? Other:?? ? Thank you for allowing us to take part in this patient's care. Please feel free to contact the [facility] Speech Language Pathology Department with any questions/concerns. Coding CPT Codes MOTION FLUOROSCOPY/SWALLOW - [id number] ([id number])
[2023-11-25] MEDS: Barium Sulfate 700 MG TAB PO (15:20)
[2023-11-25] MEDS: Barium Sulfate 81% w/w for Oral Suspension 148 GM BTL PO (15:20)
[2023-11-25] MEDS: Barium Sulfate Oral Paste 40% W/V 230 ML TUBE PO (15:21)
[2023-11-25] MEDS: Barium Sulfate 40% W/V 240 ML BTL PO (15:22)
--- NOTE | 2023-11-25 15:25 | DI.RAD_ITS ---
Exam(s) RF MODIFIED SPEECH BA SWALLOW TECHNIQUE: Modified barium swallow was performed in conjunction with speech pathology. CONTRAST MATERIAL: Oral barium Oral water soluble contrast was administered. COMPARISON: No exams were available for comparison FINDINGS: Fluoroscopy provided during modified barium swallow performed by the speech therapist. See that sepa rate report. There is no obvious aspiration IMPRESSION: No evidence of aspiration. See separate speech therapist report RADIATION DOSE DELIVERED: chandu Ventura=4.63 mGy
== END ==
PROVIDERS: PCP Nurse Practitioner Adult Health; Visit Provider Nurse Practitioner Adult Health
DX: R13.13 Dysphagia, pharyngeal phase (principal)
CPT/HCPCS: 92526; 92611; 74221

== ENCOUNTER 2024-01-25 05:29 | Outpatient (CLI) | payer MEDICARE, BC, SELFPAY ==
[2024-01-25 08:02] LABS: HCT 50.2 % (40.0-50.0); HGB 16.5 g/dL (13.5-17.5); MCH 33.9 pg (27.0-33.0); MCHC 32.9 % (32.0-36.0); MCV 103 fL (80-95); MPV 9.8 fL (8.0-11.0); Platelet Count 215 10^3/uL (130-400); RBC 4.87 10^6/uL (4.36-5.78); RDW-SD 45.9 fL; WBC 4.82 10^3/uL (4.4-10.8)
[2024-01-25 08:15] LABS: Hemoglobin A1C 6.5 % (<5.7)
[2024-01-25 09:24] LABS: Iron 101 ug/dL (65-175); Total Iron Binding Capacity 283 ug/dL (250-450); Transferrin Sat 36 % (20-55)
[2024-01-25 09:32] LABS: Ferritin 101 ng/mL (26-388)
== END 2024-01-25 05:30 | disposition home or self-care (01) ==
PROVIDERS: PCP Nurse Practitioner Adult Health; Visit Provider Nurse Practitioner Adult Health
DX: E11.9 Type 2 diabetes mellitus without complications
CPT/HCPCS: 36415; 85027; 82728; 83036; 83540; 83550

== ENCOUNTER 2024-04-18 06:01 | Outpatient (CLI) | payer MEDICARE, BC, SELFPAY ==
[2024-04-18 09:29] LABS: HCT 48.3 % (40.0-50.0); MCH 33.6 pg (27.0-33.0); MCHC 33.1 % (32.0-36.0); MCV 102 fL (80-95); MPV 10.6 fL (8.0-11.0); Platelet Count 186 10^3/uL (130-400); RBC 4.76 10^6/uL (4.36-5.78); RDW 12.9 % (11.8-14.1); RDW-SD 48.8 fL; WBC 4.99 10^3/uL (4.4-10.8)
[2024-04-18 09:42] LABS: Hemoglobin A1C 6.3 % (<5.7)
[2024-04-18 11:15] LABS: Ferritin 84 ng/mL (26-388)
[2024-04-18 11:16] LABS: Vitamin B12 > 2000 pg/mL (193-986)
== END 2024-04-18 06:02 | disposition home or self-care (01) ==
LOC: LBO 06:01
PROVIDERS: Absent Provider Nurse Practitioner Adult Health; PCP Nurse Practitioner Adult Health; Referring Provider Nurse Practitioner Adult Health; Visit Provider Nurse Practitioner Adult Health
DX: E11.9 Type 2 diabetes mellitus without complications (principal); R13.10 Dysphagia, unspecified; D50.8 Other iron deficiency anemias; R41.3 Other amnesia
CPT/HCPCS: 36415; 85027; 82607; 82728; 83036

== ENCOUNTER 2024-10-14 00:48 | Outpatient (CLI) | payer MEDICARE, BC, SELFPAY ==
[2024-10-14 07:28] LABS: Abs Immature Grans 0.02 10^3/uL (0.0-0.06); Absolute Basophil Count 0.04 10^3/uL (0.0-0.2); Absolute Eosinophil Count 0.25 10^3/uL (0.0-0.7); Absolute Lymphocyte Count 1.57 10^3/uL (1.2-3.4); Absolute Monocyte Count 0.59 10^3/uL (0.1-0.8); Absolute Neutrophil Count 2.33 10^3/uL (1.2-6.7); Basophils % 0.8 %; Eosinophils % 5.2 %; HGB 15.7 g/dL (13.5-17.5); Immature Grans % 0.4 %; Lymphocytes % 32.7 %; MCH 34.1 pg (27.0-33.0); MCHC 32.7 % (32.0-36.0); MCV 104 fL (80-95); MPV 9.8 fL (8.0-11.0); Monocytes % 12.3 %; Neutrophils % 48.6 %; Platelet Count 184 10^3/uL (130-400); RDW 13.2 % (11.8-14.1); RDW-SD 50.7 fL
[2024-10-14 07:59] LABS: Hemoglobin A1C 6.1 % (<5.7)
[2024-10-14 08:07] LABS: Anion Gap 7.3 mmol/L (3-11); BUN 16 mg/dL (7-18); CO2 27.7 mmol/L (21.0-32.0); Calcium 9.2 mg/dL (8.5-10.1); Calculated LDL 51 mg/dL (<100); Chloride 107 mmol/L (98-107); Cholesterol 154 mg/dL (<200); Estimated GFR 79.47 (mL/min/1.73m2); Ferritin 79 ng/mL (26-388); Glucose 144 mg/dL (74-106); HDL Cholesterol 84 mg/dL (40-60); Potassium 4.5 mmol/L (3.5-5.1); Sodium 142 mmol/L (136-145); Triglyceride 95 mg/dL (<150)
[2024-10-14 08:24] LABS: FREE T4 0.85 ng/dL (0.76-1.46)
[2024-10-14 08:48] LABS: COMMENT (LAB VIEW ONLY) 109.52 mg/dL; Microalb ug/mg Crea 2.4 ug/mg Cr
== END 2024-10-14 00:49 | disposition home or self-care (01) ==
LOC: LBO 00:51
PROVIDERS: PCP Nurse Practitioner Adult Health; Referring Provider Nurse Practitioner Adult Health; Visit Provider Nurse Practitioner Adult Health
DX: E11.9 Type 2 diabetes mellitus without complications (principal); E03.9 Hypothyroidism, unspecified; I10 Essential (primary) hypertension; E78.5 Hyperlipidemia, unspecified
CPT/HCPCS: 36415; 80048; 80061; 82043; 82570; 82728; 83036; 84439; 84443; 85025

== ENCOUNTER 2025-10-02 03:56 | Outpatient (CLI) | payer MEDICARE, BC, SELFPAY ==
[2025-10-02 07:58] LABS: Hemoglobin A1C 5.9 % (<5.7)
[2025-10-02 08:20] LABS: Microalb ug/mg Crea 2.0 ug/mg Cr
[2025-10-02 08:23] LABS: TSH (W/Ref FT4) 5.11 uIU/mL (0.55-4.78)
[2025-10-02 08:25] LABS: ALT 19 U/L (10-49); AST 20 U/L (<34); Albumin 4.3 g/dL (3.4-5.0); Alkaline Phosphatase 81 U/L (46-116); Anion Gap 6.4 mmol/L (3-11); BUN 16 mg/dL (9-23); Bilirubin, Total 0.50 mg/dL (0.2-1.2); CO2 25.6 mmol/L (20.0-31.0); Calcium 9.3 mg/dL (8.3-10.6); Chloride 108 mmol/L (98-107); Cholesterol 123 mg/dL (<200); Glucose 179 mg/dL (74-106); HDL Cholesterol 52 mg/dL (>40); Potassium 4.6 mmol/L (3.5-5.1); Sodium 140 mmol/L (136-145); Total Protein 6.7 g/dL (5.7-8.2)
[2025-10-02 11:31] LABS: Vitamin B12 1396 pg/mL (211-911)
== END 2025-10-02 03:57 | disposition home or self-care (01) ==
LOC: LBO 03:56
PROVIDERS: PCP Nurse Practitioner Adult Health; Referring Provider Nurse Practitioner Adult Health; Visit Provider Nurse Practitioner Adult Health
DX: E78.5 Hyperlipidemia, unspecified (principal); I10 Essential (primary) hypertension; E11.9 Type 2 diabetes mellitus without complications; E03.9 Hypothyroidism, unspecified
CPT/HCPCS: 36415; 80053; 80061; 82043; 82570; 82607; 83036; 84439; 84443